=== PATIENT | female | born 1935 | race Caucasian/White ===

== ENCOUNTER 2018-11-20 11:25 | Inpatient (IN) | payer MEDICARE ==
[2018-11-20] VITALS (18 sets, daily range): BP systolic 76–140; BP diastolic 50–82
[~2018-11-20] VITALS: Ht 160 cm; Wt 96.6 kg
[~2018-11-20 11:25] MED LIST: PIPERACILLIN/TAZOBACTAM 2.25 GM in IV NORMAL SALINE 50ML 50 ML IV SCH
[2018-11-20] MEDS: levETIRAcetam 500 MG in IV DEXTROSE 5% 100ML 100 ML IV SCH (12:57)
[2018-11-20 13:13] LABS: BASE EXCESS ABG -2 mmol/L (-3-3); HCO3 ABG 25 mmol/L (21-28); PCO2 ABG 51 mmHg (35-46); PO2 ABG 265 mmHg (65-108)
[2018-11-20 13:19] LABS: FIO2 ABG 100
--- NOTE | 2018-11-20 13:34 | RAD ---
Abdominal radiograph November 20, 2018 INDICATION: ET tube placement. OG placement COMPARISON: None available TECHNIQUE: Single supine view of abdomen is provided. FINDINGS: Orogastric tube is identified with the side port projecting over the left upper quadrant the region of the stomach. There are no dilated small or large bowel loops. No pneumatosis coli. No portal venous gas is identified. Stool is noted within the left colon. No suspicious osseous amount. IMPRESSION: Orogastric tube is in appropriate position with the distal tip terminating in the stomach. Nonobstructive bowel gas pattern. Electronically signed by: Therese Walker MD (11/20/2018 1:31 PM) [id number]
--- NOTE | 2018-11-20 13:36 | RAD ---
EXAM: Chest, single view. HISTORY: Endotracheal tube placement. COMPARISON: None. FINDINGS: A frontal view of the chest is obtained. There is an endotracheal tube within the distal trachea with the tip approximately 2.0 cm proximal to the celina. There is a nasogastric tube looped within the stomach. There is diffuse right lung infiltrate. There is a suspected left lower lobe atelectasis superimposed on chronic coarse increased interstitial opacity. The heart is normal in size. There is no pleural effusion or pneumothorax. IMPRESSION: 1. Endotracheal tube within the distal trachea and nasogastric tube within the stomach. 2. Diffuse right lung infiltrate. Electronically signed by: Poornima Washington MD (11/20/2018 1:32 PM) [facility]
--- NOTE | 2018-11-20 14:33 | RAD ---
EXAM: Chest, single view. HISTORY: Line placement. COMPARISON: Chest radiograph obtained on the same date. FINDINGS: A frontal view of the chest is obtained. There is a right internal jugular catheter with the tip in the superior right atrium. There is no pneumothorax. There is noted to the tube within the distal trachea with the tip approximately 1.9 cm from the celina. There is a nasogastric tube within the stomach. There is diffuse upper lobe predominant right lung infiltrate. There is suspected left lower lobe atelectasis. There is a stable prominent cardiac silhouette. IMPRESSION: 1. Is interval placement of a right internal jugular catheter with the tip in the superior right atrium. There is an endotracheal tube and nasogastric tube which are unchanged compared to the prior study. 2. Diffuse upper lobe predominant right lung infiltrate superimposed on diffuse interstitial prominence. 3. Prominent cardiac silhouette. Electronically signed by: Poornima Washington MD (11/20/2018 2:31 PM) [facility]
[2018-11-20] MEDS ORDERED: levETIRAcetam 1,000 MG in IV DEXTROSE 5% 100ML 100 ML IV ONE (15:30)
--- NOTE | 2018-11-20 15:41 | RAD ---
Procedure: Ultrasound-guided placement of right internal jugular central venous catheter11/20/2018 3:38 PM Clinical Indication: EMERGENT ACCESS, need for fluid resuscitation Discussion: The risks and benefits of the procedure were discussed the patient and/or their technical service representative. Informed consent was obtained. A timeout procedure was performed. All elements of maximal sterile barrier technique including the use of a cap, mask, sterile gown, sterile gloves, large sterile sheet, appropriate hand hygiene, and 2% chlorhexidine for cutaneous antisepsis (or acceptable alternative antiseptic per current guidelines) were followed for this procedure. The patient was prepped and draped in the usual sterile fashion. Ultrasound interrogation of the right neck revealed patency and compressibility of the right internal jugular vein. A 21-gauge micropuncture was then used to gain access to this vein under ultrasound guidance. A hard copy ultrasound image was recorded. A guidewire was advanced centrally. 5 Chinese sheath was placed. Over a wire following dilatation, a triple-lumen central venous catheter was advanced centrally. Catheter was found to flush and aspirate normally. Follow-up chest radiograph demonstrates tip at the cavoatrial junction. Catheter secured in place and a sterile dressing was applied. No immediate complications were identified. Impression: Successful ultrasound-guided placement of right internal jugular triple-lumen central venous catheter
--- NOTE | 2018-11-20 15:56 | PDOC2 ---
ROSELINE TRUJILLO THREADER OPERATOR 11/20/18 1556: CARDIAC CONSULT DATE OF CONSULT Date of Consult DATE: 11/20/18 TIME: 15:12 REASON FOR CONSULT Reason for Consult: Cardiopulmonary arrest REFERRING PHYSICIAN Referring Physician: Heath SOURCE Source: Chart review HISTORY OF PRESENT ILLNESS HISTORY OF PRESENT ILLNESS This is an 83 yo female admitted for cardiopulmonary arrest. Pt noted recently with EF of 15% over a month ago. She has known cardiac disease but noted related to CAD. She had LHC in 2002 which did not show any significnat blockage per daughter but she did have rheumatic heart disase as a child. She was eating biscuits and gravy and actually got done. She was sitting on a recliner and sat back a little bit further which afterwards she was noted by her daughter described as cough and agonal breathing and started shaking her arms. She was with 911 on the phone and was still doing her described agonal breathing. EMS station was close by per family and no CPR started till EMS got there which was about between 5-10 minutes from the start of symptoms. No notable CP, vomiting or incontinence at that time recorded. She was noted with V-fib and was shocked at least once per staff. She was intubated en route and while in ED at [place] apparently had Vtach at [place] then went back to . Again she was on hospice but daughter decided to revoke it and further resuscitation was initiated at [facility] and pt eventually transferred to [facility] for further evaluation and treatment and hypothermia protocol has been initiated,. PAST MEDICAL HISTORY Cardiovascular: CHF, HTN, Other (NICM) CENTRAL NERVOUS SYSTEM: Other (RLS) Musculoskeletal: Osteoarthritis PAST SURGICAL HISTORY Past Surgical History: Other (mastoid surgery) FAMILY HISTORY Family History noncontributory SOCIAL HISTORY Smoke: No ALCOHOL: none Drugs: None Lives: with Family ALLERGIES ALLERGIES: Coded Allergies: Sulfa (Sulfonamide Antibiotics) (Verified Allergy, Severe, anaphylaxis, ) clarithromycin (Verified Allergy, Severe, anaphylaxis, 11/20/18) codeine (Verified Allergy, Intermediate, 11/20/18) ROS Review of System unreliable, intubated PHYSICAL EXAM General: Other (intubated) Lungs: Other (diffuse rhonchus) Heart: Regular rate (appears to be SR with LBBB), Other (unable to appreciate heart sounds due to rhonchus) Abdomen: Soft Extremities: No cyanosis, Other (1+ bilateral LE pitting edema) Skin: No breakdown Psych/Mental Status: Other (on versed) MUSCULOSKELETAL: Osteoarthritic changes both hands VITALS VITALS Vital Signs Date Time Temp Pulse Resp B/P (MAP) Pulse Ox O2 Delivery O2 Flow Rate FiO2 11/20/18 13:00 100 Ventilator LABS Lab: Laboratory Tests Test 11/20/18 13:05 11/20/18 13:30 Arterial Blood pH 7.31 (7.35-7.45) Arterial Blood pCO2 at Patient Temp 51 mmHg (35-46) Arterial Blood pO2 at Patient Temp 265 mmHg (65-108) Arterial Blood HCO3 25 mmol/L (21-28) Arterial Blood Base Excess -2 mmol/L (-3-3) FiO2 100 Glucose (Fingerstick) 321 mg/dL (70-99) ASSESSMENT/PLAN ASSESSMENT/PLAN 1. OOH Cardiopulmonary arrest with Vfib/VT: x2 shocks presently SR with LBBB. 5- 10 minutes without CPR with described agonal breathing. suspect triggered potentially by aspiration. 2. Acute on chronic systolic CHF 3. Acute respiratory failure: intubated/vent 4. Anoxic encephalopathy with seizure episode. 5. Possible aspiration 6,.Prior hospice: decided 1 month ago and revoked by daughter at home. 7. HTN: hypotensive 8. DM2/HLP 9. NICM: known EF<15% with hx of rheumatic heart disease. Recommendations 1. Family deciding to change to DNR status 2. Supportive care, currently on hypothermia protocol 3. Consult neurology 4. TTE. CMP, Mg. PT/INR Will need CT head. 5. Very poor prognosis, consider transforming back to hospice. 6. Versed and levophed in place. KRUNAL DELGADILLO MD 11/21/18 0649: CARDIAC CONSULT ASSESSMENT/PLAN ASSESSMENT/PLAN Pt. seen and examined. Agree with above GENERAL ADJUSTER note. Discussed with family the current issues of possible neurologic injury and severe known prior LV dysfunction. Agree with DNR. Await neurologic recovery, check echo to help inform family the prognosis of her CMP. Supportive care. Late entry for 11/20/2018 ROSELINE TRUJILLO APRN Nov 20, 2018 15:56 KRUNAL DELGADILLO MD Nov 21, 2018 06:49
--- NOTE | 2018-11-20 16:10 | PDOC2 ---
PALLIATIVE CARE Palliative Care Note Palliative Care Consult requested by Dr. Joe to address goals of care. S/P Cardiopulmonary Arrest at home. Transferred from [facility] Medical Assessment per medical record; 1. OOH Cardiopulmonary arrest with Vfib/VT: x2 shocks presently SR with LBBB. 5- 10 minutes without CPR with described agonal breathing. suspect triggered potentially by aspiration. 2. Acute on chronic systolic CHF 3. Acute respiratory failure: intubated/vent 4. Anoxic encephalopathy with seizure episode. 5. Possible aspiration 6,.Prior hospice: decided 1 month ago and revoked by daughter at home. 7. HTN: hypotensive 8. DM2/HLP 9. NICM: known EF<15% with hx of rheumatic heart disease. Daughter shared that patient had been placed on Hospice ([facility]) for Heart Failure. (Has signed out) Dr. Alexandre here. Spoke with daughter. Reviewed medical condition with [facility]-- dtr/DPOA and her . Patient has son Asa coming from [place]. Daughter requests DNR. Hypothermia protocol Patient on Vent. Seizure activity --intermittent. On Versed gtt. Received Ativan. Dr. Ha examined pt. 1605 CT scan ordered and transferred to Radiology. Plan: Continue current plan DNR. On vent. [address] Head IMPRESSION: 1. No acute intracranial abnormality. 2. Mild supratentorial white matter changes probably due to chronic small vessel ischemic disease. 1650 Family at bedside. Continue current plan. DENNIS ROWAN Nov 20, 2018 16:10
--- NOTE | 2018-11-20 16:17 | PDOC ---
PULMONARY PROGRESS NOTES Vitals Vital Signs Date Time Temp Pulse Resp B/P (MAP) Pulse Ox O2 Delivery O2 Flow Rate FiO2 11/20/18 13:00 100 Ventilator Labs Laboratory Tests Test 11/20/18 13:05 11/20/18 13:30 Arterial Blood pH 7.31 (7.35-7.45) Arterial Blood pCO2 at Patient Temp 51 mmHg (35-46) Arterial Blood pO2 at Patient Temp 265 mmHg (65-108) Arterial Blood HCO3 25 mmol/L (21-28) Arterial Blood Base Excess -2 mmol/L (-3-3) FiO2 100 Glucose (Fingerstick) 321 mg/dL (70-99) Laboratory Tests Test 11/20/18 13:05 11/20/18 13:30 Arterial Blood pH 7.31 (7.35-7.45) Arterial Blood pCO2 at Patient Temp 51 mmHg (35-46) Arterial Blood pO2 at Patient Temp 265 mmHg (65-108) Arterial Blood HCO3 25 mmol/L (21-28) Arterial Blood Base Excess -2 mmol/L (-3-3) FiO2 100 Glucose (Fingerstick) 321 mg/dL (70-99) Impression . FULL NOTE DICTATED OOH CARDIAC ARREST AGREE WITH CURRENT RX D/C MALA BECK MD Nov 20, 2018 16:17
--- NOTE | 2018-11-20 16:33 | RAD ---
PQRS Compliance Statement: One or more of the following individualized dose reduction techniques were utilized for this examination: 1. Automated exposure control 2. Adjustment of the mA and/or kV according to patient size 3. Use of iterative reconstruction technique CT HEAD WITHOUT CONTRAST History: POST CODE, AMS, Comparison: None. Technique: Axial images are obtained of the head from the skull base through the vertex without IV contrast. Findings: No mass-effect, midline shift, extra-axial fluid collection, hemorrhage, or obvious acute infarction is identified. Basilar cisterns are patent. The ventricles and sulci are normal for patient age. There is mild supratentorial white matter hypoattenuation. This is a nonspecific finding but is commonly due to chronic small vessel ischemic disease. Bone windows demonstrate no acute calvarial abnormality. There is low-density with flecks of air in the posterior nasal passage. Patient is intubated. Mucosal thickening bilateral ethmoid and sphenoid sinuses. Evidence of prior left temporal bone surgery. Small amount of fluid in the left mastoid air cells. IMPRESSION: 1. No acute intracranial abnormality. 2. Mild supratentorial white matter changes probably due to chronic small vessel ischemic disease. Electronically signed by: Blair Cook MD (11/20/2018 4:30 PM) [id number]
[2018-11-20 16:59] LABS: HEMATOCRIT 35.3 % (36.0-47.0); HEMOGLOBIN 10.9 g/dL (12.0-15.5); RED BLOOD COUNT 4.2 x10^6/uL (3.50-5.40); RED CELL DISTRIBUTION WIDTH 14.5 % (11.5-14.5)
--- NOTE | 2018-11-20 17:00 | PDOC2 ---
NEUROLOGY CONSULT Date of Admission Date of Admission DATE: 11/20/18 TIME: 16:37 Reason for Consult Reason for Consult: IMPRESSION: Anoxia/hypoxia brain injury. Metabolic encephalopathy. Cardiopulmonary arrest, downtime estimated at least 5-10 minutes. Respiratory failure. VF and V-tach. Seizure. Metabolic acidosis. Diffuse right lung infiltrate. Hyperglycemia, glucose 321. CAD. CHF, EF 15% a month ago. HTN. Obesity. Other medical diseases. RECOMMENDATIONS/PLAN: Life support in ICU at the present time. Keppra 500 mg IV q12h. Stat HCT w/o contrast before hypothermia protocol. Lab: see orders. Consulted Cardiology. Treat medical and cardiac diseases. Further neurological evaluation after cardiac protocol. Consulted Palliative Care team. HISTORY OF THE PRESENT ILLNESS: This is an 83-year-old female patient who was admitted after cardiopulmonary arrest. She has CAD and her recently EF was 15% over a month ago. She had rheumatic heart disease in childhood. She was sitting on a recliner after eating biscuits and gravy and sat back a little bit further which afterwards she was noted by her daughter described as cough and agonal breathing and started shaking her arms, so 911 was called. EMS station is near her family and no CPR started till EMS got there which was about 5-10 minutes from symptoms had started. No notable CP, vomiting or incontinence at that time. She was revealed V-fib and was shocked at least once per staff. She was intubated en route while in ED at [place] apparently had V-tach then went back to . She was on hospice but daughter decided to revoke it and further resuscitation was received and she was eventually transferred to [facility] for further evaluation and treatment. PAST MEDICAL HISTORY Cardiovascular: CHF, HTN, Other (NICM) CENTRAL NERVOUS SYSTEM: Other (RLS) Musculoskeletal: Osteoarthritis PAST SURGICAL HISTORY Mastoid surgery. FAMILY HISTORY Noncontributory SOCIAL HISTORY Smoke: No ALCOHOL: none Drugs: None Lives: with Family ALLERGY: Unknown MEDICATIONS: Refer to MAR REVIEW OF SYSTEMS: Constitutional: Obesity. Head: No recent traumatic brain or head injury. Skin: No edema, or rash. Ear: No infection. Eyes: No vision loss or color blindness. Nose: No bleeding or purulent discharges. Hearing: Hearing decrease. Neck: No injury. Breast: No history of cancer, masses,or discharges. Cardiac: CAD, CHF. Pulmonary: Pneumonia. GI: No GI ulcer. Urinary/genital: UTI. Endocrinologic: Diabetes Mellitus, obesity. Skeletomuscular: No muscular atrophy, deformity. Neurological: see HP. Psychiatric: Denies drug use/abuse. Otherwise, not [id number] review of systems. PHYSICAL EXAMINATION: General appearance is in acute distress. HEENT: Normocephalic and nontraumatic. Eyes, nose, ears, and throat are unremarkable. Neck is supple. No lymphadenopathy. No crepitus. Cardiovascular: S1, S2. Pulmonary: On vent. Abdomen: Bowel sounds are positive. Extremities: No rash. No restriction of range of motion NEUROLOGICAL EXAMINATION: Unresponsiveness. Not oriented to time, place and person. Pupils about 2 mm, not sensitive to light stimuli. EOMI not elicited. CN: no acute focal findings. Muscle tone: decreased. Muscle strength: No movements noted to stimuli. DTR: 0-1 Plantar reflex: No response bilaterally Gait: Unable to walk. Sensory exam: no response to pain stimuli. Not able to access cerebellar signs. F-T-N test not performed in unresponsive state. Current Medications Current Medications Current Medications Midazolam HCl 100 ml @ 5 mls/hr CONT PRN IV SEE I/O RECORD; Start 11/20/18 at 13:00 Lorazepam (Ativan) 2 mg STK-MED ONCE .ROUTE ; Start 11/20/18 at 12:56; Stop at 12:57; Status DC Norepinephrine Bitartrate 250 ml @ 1.875 mls/ hr CONT PRN IV SEE I/O RECORD; Start 11/20/18 at 13:15 Levetiracetam 1000 mg/Dextrose 110 ml @ 440 mls/hr 1X ONCE IV ; Start at 15:30; Stop 11/20/18 at 15:44; Status DC Levetiracetam 500 mg/Dextrose 105 ml @ 420 mls/hr Q12HR IV ; Start 11/21/18 at 09:00 Allergies Allergies: Allergies Coded Allergies Type Severity Reaction Last Updated Verified Unable to Assess 11/20/18 No ROS Review of System The patient denies any associated fevers, chills, headache, ear pain, rhinorrhea , sore throat, stiff neck, productive cough, chest pain, shortness of breath, back or flank pain, abdominal pain, nausea, vomiting, diarrhea, constipation, dysuria, rash, numbness, weakness, tingling, incontinence, difficulty ambulating, or diaphoresis. Physical Exam Physical Exam General: Well developed, well nourished, no acute distress, well appearing HEENT: Pupils equally round and reactive to light, EOMI, no discharge, normal conjunctiva Neck: Supple, no nuchal rigidity, no JVD, trachea midline, no tenderness Cardiac: RRR, no murmurs, no gallops, no rubs Chest/Lungs: CTAB, no wheeze, no rhonchi, no crackles Abdomen: soft, non-distended, no guarding, no peritoneal signs, non-tender Back: No tenderness Extremities: no edema, pulses intact, non-tender,capillary refill <3 sec bilateral upper and lower extremities, Neuro: Alert and oriented x 4, no focal deficits, normal speech Vitals Vitals: Vital Signs Date Time Temp Pulse Resp B/P (MAP) Pulse Ox O2 Delivery O2 Flow Rate FiO2 11/20/18 13:00 100 Ventilator Labs Labs Laboratory Tests Test 11/20/18 13:05 11/20/18 13:30 Arterial Blood pH 7.31 (7.35-7.45) Arterial Blood pCO2 at Patient Temp 51 mmHg (35-46) Arterial Blood pO2 at Patient Temp 265 mmHg (65-108) Arterial Blood HCO3 25 mmol/L (21-28) Arterial Blood Base Excess -2 mmol/L (-3-3) FiO2 100 Glucose (Fingerstick) 321 mg/dL (70-99) Laboratory Tests Test 11/20/18 13:05 11/20/18 13:30 Arterial Blood pH 7.31 (7.35-7.45) Arterial Blood pCO2 at Patient Temp 51 mmHg (35-46) Arterial Blood pO2 at Patient Temp 265 mmHg (65-108) Arterial Blood HCO3 25 mmol/L (21-28) Arterial Blood Base Excess -2 mmol/L (-3-3) FiO2 100 Glucose (Fingerstick) 321 mg/dL (70-99) KAI MENDEZ MD Nov 20, 2018 17:00
[2018-11-20 17:05] LABS: WHITE BLOOD COUNT 42.5 x10^3/uL (4.0-11.0)
[2018-11-20 17:11] LABS: PROTHROMBIN TIME PATIENT 15.4 SEC (11.7-14.0)
[2018-11-20 17:15] LABS: ALBUMIN 2.7 g/dL (3.4-5.0); ALBUMIN/GLOBULIN RATIO 0.8 (1.0-1.7); CALCIUM 8.2 mg/dL (8.5-10.1); CREATININE 1.7 mg/dL (0.6-1.0); GFR 28.6; MAGNESIUM 1.9 mg/dL (1.8-2.4); POTASSIUM 4.8 mmol/L (3.5-5.1); TOTAL BILIRUBIN 0.3 mg/dL (0.2-1.0); TOTAL PROTEIN 6.2 g/dL (6.4-8.2)
[2018-11-20] MEDS: MIDAZOLAM 100mg/100ml NS BAG 100 ML IV PRN ×2 (17:15→22:22)
[2018-11-20] MEDS: NOREPINEPHRIN 8MG/250ML PREMIX 250 ML IV PRN (17:15)
[2018-11-20] MEDS ORDERED: GLIM4TAB2 PO (19:19)
[2018-11-20] MEDS ORDERED: ZOLP10TA PO (19:19)
[2018-11-20] MEDS ORDERED: IPRA3AMP29 NEB (19:19)
[2018-11-20] MEDS ORDERED: BREO ELLIPTA 11 EACH IH (19:19)
[2018-11-20] MEDS ORDERED: ACET325T9 PO (19:19)
[2018-11-20] MEDS ORDERED: RAMI10CA53 PO (19:19)
[2018-11-20] MEDS ORDERED: CHOL100013 PO (19:19)
[2018-11-20] MEDS ORDERED: FURO-68 PO (19:19)
[2018-11-20] MEDS ORDERED: GLIM2TAB2 PO (19:19)
[2018-11-20] MEDS ORDERED: METO50TA6 PO (19:19)
[2018-11-20] MEDS ORDERED: TIOT18CA IH (19:19)
[2018-11-20] MEDS ORDERED: ASPI81TA50 PO (19:19)
[2018-11-20] MEDS ORDERED: INSU100I13 SQ (19:19)
[2018-11-20] MEDS ORDERED: IV NORMAL SALINE 500ML BAG 500 ML IV ONE (19:45)
[2018-11-20] MEDS ORDERED: PIP/TAZO PER PHARMACY MC PRN (19:45)
[2018-11-20] MEDS: IV NORMAL SALINE 1000ML BAG 1,000 ML IV SCH (19:48)
[2018-11-20 20:23] LABS: BASE EXCESS ABG -5 mmol/L (-3-3); CORRECTED PCO2 ABG 35 mmHg; CORRECTED PH ABG 7.36; CORRECTED PO2 ABG 77 mmHg; HCO3 ABG 20 mmol/L (21-28)
[2018-11-20 20:25] LABS: FIO2 ABG 60; PCO2 ABG 39 mmHg (35-46); PO2 ABG 88 mmHg (65-108)
[2018-11-20] MEDS: PIPERACILLIN/TAZOBACTAM 2.25 GM in IV NORMAL SALINE 50ML 50 ML IV SCH ×2 (20:39→23:50)
[2018-11-20 20:45] LABS: BASO % 0 % (0-3); EOS % 0 % (0-3); HEMATOCRIT 33.8 % (36.0-47.0); HEMOGLOBIN 10.5 g/dL (12.0-15.5); LYMPH # 1.7 x10^3/uL (1.0-4.8); LYMPH % 4 % (24-48); MEAN CORPUSCULAR HEMOGLOBIN 26 pg (25-35); MEAN CORPUSCULAR HGB CONC 31 g/dL (31-37); MEAN CORPUSCULAR VOLUME 85 fL (79-100); MONO # 2.4 x10^3/uL (0.0-1.1); MONO % 6 % (0-9); NEUT # 36.1 x10^3uL (1.8-7.7); NEUT % 90 % (31-73); PLATELET COUNT 301 x10^3/uL (140-400); RED BLOOD COUNT 3.99 x10^6/uL (3.50-5.40); RED CELL DISTRIBUTION WIDTH 14.5 % (11.5-14.5)
[2018-11-20] MEDS ORDERED: INSULIN REGULAR VIAL 150 UNIT in 0.9 % SODIUM CHLORIDE 150ML 150 ML IV PRN (20:45)
[2018-11-20 20:54] LABS: WHITE BLOOD COUNT 40.1 x10^3/uL (4.0-11.0)
[2018-11-20 20:58] LABS: PROTHROMBIN TIME PATIENT 16.1 SEC (11.7-14.0)
[2018-11-20] MEDS ORDERED: VANCOMYCIN 2 GM in IV NORMAL SALINE 500ML BAG 500 ML IV ONE (21:00)
[2018-11-20 21:02] LABS: ALBUMIN 2.4 g/dL (3.4-5.0); ALBUMIN/GLOBULIN RATIO 0.7 (1.0-1.7); CALCIUM 7.7 mg/dL (8.5-10.1); CREATININE 1.6 mg/dL (0.6-1.0); GFR 30.6; MAGNESIUM 1.7 mg/dL (1.8-2.4); PHOSPHORUS 4.1 mg/dL (2.6-4.7); POTASSIUM 4.8 mmol/L (3.5-5.1); TOTAL BILIRUBIN 0.3 mg/dL (0.2-1.0); TOTAL PROTEIN 5.9 g/dL (6.4-8.2)
[2018-11-20] MEDS: VANCOMYCIN PER PHARMACY MC PRN ×2 (21:35→21:36)
--- NOTE | 2018-11-20 21:41 | NUR ---
Pharmacy Vancomycin Dosing Note S:Consulted to monitor and dose vancomycin started 11/20/18. O:THAD CHENG is a 83 year old F with Empiric . Height: 5 feet, 3 inches Weight: 96.547178 kg [place] Body Weight: 52.40 Adjusted Body Weight: 70.08 Dosing Weight: Actual Other Antibiotics: Zosyn LABS: Last BUN: 34 Last Creatinine: 1.6 Creatinine Clearance: 28.4 mL/min Last WBC: 40.1 Last Procalcitonin: Tmax (past 24 hours): 99.1 Microbiology: I/O: Drug Levels: Last level: on at Last dose given 11/20/18 at 2040 Vancomycin Dosing: Loading Dose: 2000 mg x1 Dosing Weight: Actual Target Trough: 15-20 A: Based on weight and CrCl: P: 1. Vancomycin 2000mg, followed Vancomycin 1250 mg IV q24h. 2. Follow up Trough level on 11/22/18 at 2030. 3. Pharmacy will continue to monitor, follow and adjust therapy as needed. Russell Jamison [facility], 11/20/18 [id number]
[2018-11-20 21:50] LABS: % BANDS 27 % (0-9); % EOS 1 % (0-5); % LYMPHS 5 % (24-48); % MONOS 6 % (0-10); % SEGS 61 % (35-66)
[2018-11-20 21:51] LABS: PLT ESTIMATE ADEQUATE (ADEQUATE)
[2018-11-21] VITALS (29 sets, daily range): BP systolic 42–123; BP diastolic 41–81
[2018-11-21 02:13] LABS: CALCIUM 7.7 mg/dL (8.5-10.1); CREATININE 1.9 mg/dL (0.6-1.0); GFR 25.1; MAGNESIUM 1.5 mg/dL (1.8-2.4); PHOSPHORUS 3.2 mg/dL (2.6-4.7); POTASSIUM 3.6 mmol/L (3.5-5.1)
[2018-11-21] MEDS: NOREPINEPHRIN 8MG/250ML PREMIX 250 ML IV PRN ×2 (03:07→18:19)
--- NOTE | 2018-11-21 04:40 | CONS ---
DATE OF CONSULTATION: 11/20/2018 ATTENDING PHYSICIAN: Dr. Joe. REASON FOR CONSULTATION: The patient seen in pulmonary consultation at the request of Dr. Joe for vent management. The patient suffered an out of hospital cardiac arrest. HISTORY OF PRESENT ILLNESS: The patient is an 83-year-old with an out of hospital cardiac arrest. She was intubated and transferred to [facility]. She has an ejection fraction of 15%. Apparently, she was on hospice care. The daughter noted that she passed out at home. 911 was summoned. She had some agonal breathing. The patient was also noted to be in V-fib. She was shocked, minimum of once, maybe more than once. She was intubated en route and transferred to the Emergency Department at [facility]. She was eventually transferred to [place]. Upon arrival, I was in the intensive care unit. The patient had ET tube in place. She was actively seizing. Her vital signs are otherwise stable. The patient's daughter who was at the bedside stated that she has been sick for several weeks now. She had influenza virus and she was treated with Tamiflu. Then, she received several rounds of antibiotics and prednisone. She recently [place] here [place] of [place] to be closer to family for support. She was under hospice care for her cardiomyopathy. PAST MEDICAL HISTORY: Suspect nonischemic cardiomyopathy, ejection fraction of 15%, hypertension, chronic heart failure, recent influenza, recent treatment for pneumonia, possible COPD. She does have osteoarthritis. SOCIAL HISTORY: She lives with family. No history given of alcohol or tobacco use. ALLERGIES: SHE HAS MULTIPLE ALLERGIES, ACCORDING TO THE DAUGHTER. PHYSICAL EXAMINATION: GENERAL: She was in the intensive care unit. VITAL SIGNS: Stable. O2 saturation was greater than 92%. HEENT: Eyes, the sclerae were nonicteric. NECK: Jugular venous distention could not be assessed secondary to body habitus. CHEST: Full expansion. LUNGS: Adequate air flow, no wheezes. CARDIOVASCULAR: Regular rate and rhythm with S1, S2, no S3. ABDOMEN: Soft. EXTREMITIES: No edema. NEUROLOGIC: The patient was sedated, but was seizing. LABORATORY DATA: Chest x-ray revealed bilateral pulmonary infiltrates. Arterial blood gas was pending at the time. Electrolytes likewise pending. IMPRESSION: 1. Acute respiratory failure secondary to out of hospital cardiopulmonary arrest. 2. Cardiac arrest, VFib. The patient shocked on the field. 3. History of nonischemic cardiomyopathy, ejection fraction of 15%. 4. Chronic heart failure. 5. Acute on chronic systolic heart failure. 6. 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 7. History of hypertension. 8. Type 2 diabetes. PLAN: 1. We will continue current support. 2. I spoke with Cardiology service. They will follow up. Suspect underlying insult was arrhythmia causing cardiac and subsequent pulmonary arrest. 3. We will initiate hypothermic protocol. 4. Ativan for seizures. 5. If continues to seize, we will consult Neurology. I do appreciate the privilege in sharing in the patient's care. Total cumulative critical care time of 50 minutes. MALA DIAMOND MD DR: SANA/sagar JOB#: [id number] / [id number]
[2018-11-21] MEDS: PIPERACILLIN/TAZOBACTAM 2.25 GM in IV NORMAL SALINE 50ML 50 ML IV SCH ×4 (05:54→23:42)
[2018-11-21 06:39] LABS: MAGNESIUM 1.7 mg/dL (1.8-2.4); PHOSPHORUS 2.9 mg/dL (2.6-4.7)
[2018-11-21 07:05] LABS: PROTHROMBIN TIME PATIENT 15.3 SEC (11.7-14.0)
[2018-11-21] MEDS: IV NORMAL SALINE 1000ML BAG 1,000 ML IV SCH ×2 (08:01→19:45)
--- NOTE | 2018-11-21 08:25 | RAD ---
Portable chest, 11/21/2018: HISTORY: Respiratory failure Comparison is made to yesterday's study. The ET tube tip lies several centimeters above the celina. An NG tube extends into the stomach. A right jugular central venous catheter extends into the right atrium. The heart is mildly enlarged. There are moderate patchy right lung infiltrates which appear unchanged. The underlying pulmonary vascularity on the right is obscured. There is ongoing obscuration of the left hemidiaphragm compatible with left basilar atelectasis/infiltrate. A component of pleural fluid cannot be excluded.. Similar findings were present on yesterday's study. There is no evidence of pneumothorax. IMPRESSION: 1. Stable tube positions. 2. Persistent moderate patchy right lung infiltrate suggesting pneumonia. 3. Unchanged mild left basilar atelectasis/infiltrate. Electronically signed by: Omar Francois MD (11/21/2018 8:22 AM) [facility]
[2018-11-21 08:30] LABS: CALCIUM 7.7 mg/dL (8.5-10.1); CREATININE 1.7 mg/dL (0.6-1.0); GFR 28.6; POTASSIUM 3.5 mmol/L (3.5-5.1)
[2018-11-21 08:32] LABS: HEMATOCRIT 33.9 % (36.0-47.0); HEMOGLOBIN 10.5 g/dL (12.0-15.5); RED CELL DISTRIBUTION WIDTH 14.6 % (11.5-14.5); WHITE BLOOD COUNT 37.9 x10^3/uL (4.0-11.0)
--- NOTE | 2018-11-21 09:18 | HP ---
ADMIT DATE: 11/20/2018 HISTORY OF PRESENT ILLNESS: The patient is an 83-year-old female patient who was apparently brought to the Emergency Room of [facility]. Apparently, she sustained cardiopulmonary arrest and was successfully resuscitated. She was intubated and was transferred to [facility] to continue mechanical ventilation, start hypothermic protocol and to consult the Cardiology as well as the aba tutor. PAST MEDICAL HISTORY: Significant for nonischemic cardiomyopathy with chronic systolic congestive heart failure, ejection fraction of only 15%. Has hypertension, restless leg syndrome, osteoarthritis. PAST SURGICAL HISTORY: Significant for mastoid surgery. FAMILY HISTORY: Noncontributory. SOCIAL HISTORY: She apparently lives with her family. She does not smoke, drink alcohol or use any recreational drugs. ALLERGIES: SHE IS ALLERGIC TO SULFA, ERYTHROMYCIN AND CODEINE. HOME MEDICATIONS: She was on following medications: Ipratropium bromide/albuterol sulfate for DuoNeb 0.5/2.5 mg 3 mL by nebulizer 4 times a day, Spiriva HandiHaler 1 inhalation once a day, metoprolol tartrate 50 mg twice a day, ramipril 10 mg once a day, aspirin 81 mg once a day, acetaminophen 325 mg 1-2 tablets 4 times a day, Ambien 10 mg at bedtime, furosemide 40 mg daily, Breo Ellipta 100/25 one puff daily. She is on Lantus insulin 45 units at bedtime and glimepiride 4 mg daily with breakfast, glimepiride 2 mg at supper. She is on vitamin D 1000 International Unit once a day. REVIEW OF SYSTEMS: Unobtainable. PHYSICAL EXAMINATION: GENERAL: On arrival to the ICU, she was intubated and mechanically ventilated. VITAL SIGNS: Her heart rate was 108, blood pressure was 105/63, temperature was 99.1, respiratory rate was 28 and oxygen saturation was 100%. HEAD, EYES, EARS, NOSE AND THROAT: Showed normocephalic, atraumatic. NECK: She has orotracheal and orogastric tube in place. Her neck was supple. HEART: Showed normal first and second heart sounds. No gallop, rub or murmur. CHEST: Showed central trachea, equal bilateral expansion, air entry. Vesicular breath sounds. No crepitation or rhonchi. ABDOMEN: Distended, soft, nontender. NEUROLOGIC: She was encephalopathic. LABORATORY DATA: Her lab work done at [facility] Emergency Room showed a white cell count 24,900, hemoglobin 11.7, hematocrit 37.6, MCV 85 and platelet count of 326,000, with normal manual differential. Her chemistry showed a serum sodium 140, potassium 4.4, chloride 100, bicarbonate 28, anion gap of 12, blood glucose of 329, BUN 23, creatinine 1.4. Her total bilirubin is normal. AST, ALT, alkaline phosphatase are elevated. Total protein 6.6, albumin 2.6, calcium was 8.8. Her globulin was 4. Her estimated GFR was 55 mL per minute. His CK was 178 and troponin was 0.182. Her magnesium was 2.1. Her EKG showed that she has a regular rhythm ____ ST axis deviation with nonspecific intraventricular block. She apparently has had a chest x-ray, which showed that there is a right internal jugular catheter with superior right atrium. There is an endotracheal tube and nasogastric tube, which are unchanged compared to prior study. Diffuse upper lobe with dominant right lung infiltrate superimposed on diffuse interstitial prominence, and she has prominent cardiac silhouette. ASSESSMENT AND PLAN: The patient received almost 3 liters of fluid and was started on Levophed, started on hypothermia protocol. By the time she arrived to the ICU, she also had what seemed to be partial seizures, for which we started her on loading dose of Keppra and continued on 500 mg IV twice a day, started her also on vasopressor in the form of Levophed. Given her white cell count was extremely high at 40,000 by the time she arrived here, we did start her also on IV antibiotic in the form of vancomycin and Zosyn as per pharmacy recommendation. I did consult the aba tutor, cardiology team. Given the fact that she has cardiac arrest, probably based on cardiac arrhythmia in a patient with a nonischemic cardiomyopathy with very poor ejection fraction of 15%. Given her seizures, I did consult also the neurologist, and I have also consulted the palliative care team given the fact that she was already on hospice prior to her cardiac arrest. We will follow her closely and await the outcome of the discussion between the palliative care team and the family. LEN SOTELO MD DR: TELMA/sagar JOB#: [id number] / [id number]
--- NOTE | 2018-11-21 09:19 | PDOC ---
PULMONARY PROGRESS NOTES Subjective PT ON PRESSORS AND SEDATED HYPOTHERMIC PROTOCOL IV KEPPRA Vitals Vital Signs Date Time Temp Pulse Resp B/P (MAP) Pulse Ox O2 Delivery O2 Flow Rate FiO2 11/21/18 06:30 87/69 (75) 11/21/18 06:00 91.7 42 28 99 Ventilator 91.7 Lungs: Clear Cardiovascular: S1, S2 Abdomen: Soft Extremities: Other (EDEMA) Skin: Warm Labs Laboratory Tests Test 11/20/18 13:05 11/20/18 13:30 11/20/18 16:50 11/20/18 20:03 Arterial Blood pH 7.31 (7.35-7.45) 7.33 (7.35-7.45) Arterial Blood pCO2 at Patient Temp 51 mmHg (35-46) 39 mmHg (35-46) Arterial Blood pO2 at Patient Temp 265 mmHg (65-108) 88 mmHg (65-108) Arterial Blood HCO3 25 mmol/L (21-28) 20 mmol/L (21-28) Arterial Blood Base Excess -2 mmol/L (-3-3) -5 mmol/L (-3-3) FiO2 100 60 Glucose (Fingerstick) 321 mg/dL (70-99) White Blood Count 42.5 x10^3/uL (4.0-11.0) Red Blood Count 4.20 x10^6/uL (3.50-5.40) Hemoglobin 10.9 g/dL (12.0-15.5) Hematocrit 35.3 % (36.0-47.0) Mean Corpuscular Volume 84 fL (79-100) Mean Corpuscular Hemoglobin 26 pg (25-35) Mean Corpuscular Hemoglobin Concent 31 g/dL (31-37) Red Cell Distribution Width 14.5 % (11.5-14.5) Platelet Count 362 x10^3/uL (140-400) Prothrombin Time 15.4 SEC (11.7-14.0) Prothromb Time International Ratio 1.3 (0.8-1.1) Sodium Level 138 mmol/L (136-145) Potassium Level 4.8 mmol/L (3.5-5.1) Chloride Level 97 mmol/L (98-107) Carbon Dioxide Level 29 mmol/L (21-32) Anion Gap 12 (6-14) Blood Urea Nitrogen 30 mg/dL (7-20) Creatinine 1.7 mg/dL (0.6-1.0) Estimated GFR (Cockcroft-Gault) 28.6 BUN/Creatinine Ratio 18 (6-20) Glucose Level 415 mg/dL (70-99) Calcium Level 8.2 mg/dL (8.5-10.1) Magnesium Level 1.9 mg/dL (1.8-2.4) Total Bilirubin 0.3 mg/dL (0.2-1.0) Aspartate Amino Transf (AST/SGOT) 229 U/L (15-37) Alanine Aminotransferase (ALT/SGPT) 243 U/L (14-59) Alkaline Phosphatase 94 U/L (46-116) Total Protein 6.2 g/dL (6.4-8.2) Albumin 2.7 g/dL (3.4-5.0) Albumin/Globulin Ratio 0.8 (1.0-1.7) Arterial Blood pH (Temp corrected) 7.36 Arterial Blood pCO2 (Temp correct) 35 mmHg Arterial Blood pO2 (Temp corrected) 77 mmHg Test 11/20/18 20:36 11/20/18 20:37 11/20/18 22:20 11/20/18 23:20 Glucose (Fingerstick) 436 mg/dL (70-99) 376 mg/dL (70-99) 394 mg/dL (70-99) White Blood Count 40.1 x10^3/uL (4.0-11.0) Red Blood Count 3.99 x10^6/uL (3.50-5.40) Hemoglobin 10.5 g/dL (12.0-15.5) Hematocrit 33.8 % (36.0-47.0) Mean Corpuscular Volume 85 fL (79-100) Mean Corpuscular Hemoglobin 26 pg (25-35) Mean Corpuscular Hemoglobin Concent 31 g/dL (31-37) Red Cell Distribution Width 14.5 % (11.5-14.5) Platelet Count 301 x10^3/uL (140-400) Neutrophils (%) (Auto) 90 % (31-73) Lymphocytes (%) (Auto) 4 % (24-48) Monocytes (%) (Auto) 6 % (0-9) Eosinophils (%) (Auto) 0 % (0-3) Basophils (%) (Auto) 0 % (0-3) Neutrophils # (Auto) 36.1 x10^3uL (1.8-7.7) Lymphocytes # (Auto) 1.7 x10^3/uL (1.0-4.8) Monocytes # (Auto) 2.4 x10^3/uL (0.0-1.1) Eosinophils # (Auto) 0.0 x10^3/uL (0.0-0.7) Basophils # (Auto) 0.0 x10^3/uL (0.0-0.2) Segmented Neutrophils % 61 % (35-66) Band Neutrophils % 27 % (0-9) Lymphocytes % 5 % (24-48) Monocytes % 6 % (0-10) Eosinophils % 1 % (0-5) Platelet Estimate Adequate (ADEQUATE) Prothrombin Time 16.1 SEC (11.7-14.0) Prothromb Time International Ratio 1.3 (0.8-1.1) Sodium Level 139 mmol/L (136-145) Potassium Level 4.8 mmol/L (3.5-5.1) Chloride Level 100 mmol/L (98-107) Carbon Dioxide Level 23 mmol/L (21-32) Anion Gap 16 (6-14) Blood Urea Nitrogen 34 mg/dL (7-20) Creatinine 1.6 mg/dL (0.6-1.0) Estimated GFR (Cockcroft-Gault) 30.6 BUN/Creatinine Ratio 21 (6-20) Glucose Level 456 mg/dL (70-99) Calcium Level 7.7 mg/dL (8.5-10.1) Phosphorus Level 4.1 mg/dL (2.6-4.7) Magnesium Level 1.7 mg/dL (1.8-2.4) Total Bilirubin 0.3 mg/dL (0.2-1.0) Aspartate Amino Transf (AST/SGOT) 172 U/L (15-37) Alanine Aminotransferase (ALT/SGPT) 211 U/L (14-59) Alkaline Phosphatase 87 U/L (46-116) Troponin I Quantitative 1.688 ng/mL (0.000-0.055) Total Protein 5.9 g/dL (6.4-8.2) Albumin 2.4 g/dL (3.4-5.0) Albumin/Globulin Ratio 0.7 (1.0-1.7) Test 11/21/18 00:34 11/21/18 01:30 11/21/18 01:39 11/21/18 03:05 Glucose (Fingerstick) 356 mg/dL (70-99) 308 mg/dL (70-99) 264 mg/dL (70-99) Sodium Level 141 mmol/L (136-145) Potassium Level 3.6 mmol/L (3.5-5.1) Chloride Level 102 mmol/L (98-107) Carbon Dioxide Level 26 mmol/L (21-32) Anion Gap 13 (6-14) Blood Urea Nitrogen 37 mg/dL (7-20) Creatinine 1.9 mg/dL (0.6-1.0) Estimated GFR (Cockcroft-Gault) 25.1 Glucose Level 362 mg/dL (70-99) Calcium Level 7.7 mg/dL (8.5-10.1) Phosphorus Level 3.2 mg/dL (2.6-4.7) Magnesium Level 1.5 mg/dL (1.8-2.4) Test 11/21/18 04:16 11/21/18 06:00 11/21/18 06:02 11/21/18 08:56 Glucose (Fingerstick) 192 mg/dL (70-99) 183 mg/dL (70-99) 128 mg/dL (70-99) White Blood Count 37.9 x10^3/uL (4.0-11.0) Red Blood Count 4.00 x10^6/uL (3.50-5.40) Hemoglobin 10.5 g/dL (12.0-15.5) Hematocrit 33.9 % (36.0-47.0) Mean Corpuscular Volume 85 fL (79-100) Mean Corpuscular Hemoglobin 26 pg (25-35) Mean Corpuscular Hemoglobin Concent 31 g/dL (31-37) Red Cell Distribution Width 14.6 % (11.5-14.5) Platelet Count 264 x10^3/uL (140-400) Prothrombin Time 15.3 SEC (11.7-14.0) Prothromb Time International Ratio 1.2 (0.8-1.1) Sodium Level 142 mmol/L (136-145) Potassium Level 3.5 mmol/L (3.5-5.1) Chloride Level 104 mmol/L (98-107) Carbon Dioxide Level 23 mmol/L (21-32) Anion Gap 15 (6-14) Blood Urea Nitrogen 39 mg/dL (7-20) Creatinine 1.7 mg/dL (0.6-1.0) Estimated GFR (Cockcroft-Gault) 28.6 Glucose Level 204 mg/dL (70-99) Calcium Level 7.7 mg/dL (8.5-10.1) Phosphorus Level 2.9 mg/dL (2.6-4.7) Magnesium Level 1.7 mg/dL (1.8-2.4) Laboratory Tests Test 11/20/18 13:05 11/20/18 13:30 11/20/18 16:50 11/20/18 20:03 Arterial Blood pH 7.31 (7.35-7.45) 7.33 (7.35-7.45) Arterial Blood pCO2 at Patient Temp 51 mmHg (35-46) 39 mmHg (35-46) Arterial Blood pO2 at Patient Temp 265 mmHg (65-108) 88 mmHg (65-108) Arterial Blood HCO3 25 mmol/L (21-28) 20 mmol/L (21-28) Arterial Blood Base Excess -2 mmol/L (-3-3) -5 mmol/L (-3-3) FiO2 100 60 Glucose (Fingerstick) 321 mg/dL (70-99) White Blood Count 42.5 x10^3/uL (4.0-11.0) Red Blood Count 4.20 x10^6/uL (3.50-5.40) Hemoglobin 10.9 g/dL (12.0-15.5) Hematocrit 35.3 % (36.0-47.0) Mean Corpuscular Volume 84 fL (79-100) Mean Corpuscular Hemoglobin 26 pg (25-35) Mean Corpuscular Hemoglobin Concent 31 g/dL (31-37) Red Cell Distribution Width 14.5 % (11.5-14.5) Platelet Count 362 x10^3/uL (140-400) Prothrombin Time 15.4 SEC (11.7-14.0) Prothromb Time International Ratio 1.3 (0.8-1.1) Sodium Level 138 mmol/L (136-145) Potassium Level 4.8 mmol/L (3.5-5.1) Chloride Level 97 mmol/L (98-107) Carbon Dioxide Level 29 mmol/L (21-32) Anion Gap 12 (6-14) Blood Urea Nitrogen 30 mg/dL (7-20) Creatinine 1.7 mg/dL (0.6-1.0) Estimated GFR (Cockcroft-Gault) 28.6 BUN/Creatinine Ratio 18 (6-20) Glucose Level 415 mg/dL (70-99) Calcium Level 8.2 mg/dL (8.5-10.1) Magnesium Level 1.9 mg/dL (1.8-2.4) Total Bilirubin 0.3 mg/dL (0.2-1.0) Aspartate Amino Transf (AST/SGOT) 229 U/L (15-37) Alanine Aminotransferase (ALT/SGPT) 243 U/L (14-59) Alkaline Phosphatase 94 U/L (46-116) Total Protein 6.2 g/dL (6.4-8.2) Albumin 2.7 g/dL (3.4-5.0) Albumin/Globulin Ratio 0.8 (1.0-1.7) Arterial Blood pH (Temp corrected) 7.36 Arterial Blood pCO2 (Temp correct) 35 mmHg Arterial Blood pO2 (Temp corrected) 77 mmHg Test 11/20/18 20:36 11/20/18 20:37 11/20/18 22:20 11/20/18 23:20 Glucose (Fingerstick) 436 mg/dL (70-99) 376 mg/dL (70-99) 394 mg/dL (70-99) White Blood Count 40.1 x10^3/uL (4.0-11.0) Red Blood Count 3.99 x10^6/uL (3.50-5.40) Hemoglobin 10.5 g/dL (12.0-15.5) Hematocrit 33.8 % (36.0-47.0) Mean Corpuscular Volume 85 fL (79-100) Mean Corpuscular Hemoglobin 26 pg (25-35) Mean Corpuscular Hemoglobin Concent 31 g/dL (31-37) Red Cell Distribution Width 14.5 % (11.5-14.5) Platelet Count 301 x10^3/uL (140-400) Neutrophils (%) (Auto) 90 % (31-73) Lymphocytes (%) (Auto) 4 % (24-48) Monocytes (%) (Auto) 6 % (0-9) Eosinophils (%) (Auto) 0 % (0-3) Basophils (%) (Auto) 0 % (0-3) Neutrophils # (Auto) 36.1 x10^3uL (1.8-7.7) Lymphocytes # (Auto) 1.7 x10^3/uL (1.0-4.8) Monocytes # (Auto) 2.4 x10^3/uL (0.0-1.1) Eosinophils # (Auto) 0.0 x10^3/uL (0.0-0.7) Basophils # (Auto) 0.0 x10^3/uL (0.0-0.2) Segmented Neutrophils % 61 % (35-66) Band Neutrophils % 27 % (0-9) Lymphocytes % 5 % (24-48) Monocytes % 6 % (0-10) Eosinophils % 1 % (0-5) Platelet Estimate Adequate (ADEQUATE) Prothrombin Time 16.1 SEC (11.7-14.0) Prothromb Time International Ratio 1.3 (0.8-1.1) Sodium Level 139 mmol/L (136-145) Potassium Level 4.8 mmol/L (3.5-5.1) Chloride Level 100 mmol/L (98-107) Carbon Dioxide Level 23 mmol/L (21-32) Anion Gap 16 (6-14) Blood Urea Nitrogen 34 mg/dL (7-20) Creatinine 1.6 mg/dL (0.6-1.0) Estimated GFR (Cockcroft-Gault) 30.6 BUN/Creatinine Ratio 21 (6-20) Glucose Level 456 mg/dL (70-99) Calcium Level 7.7 mg/dL (8.5-10.1) Phosphorus Level 4.1 mg/dL (2.6-4.7) Magnesium Level 1.7 mg/dL (1.8-2.4) Total Bilirubin 0.3 mg/dL (0.2-1.0) Aspartate Amino Transf (AST/SGOT) 172 U/L (15-37) Alanine Aminotransferase (ALT/SGPT) 211 U/L (14-59) Alkaline Phosphatase 87 U/L (46-116) Troponin I Quantitative 1.688 ng/mL (0.000-0.055) Total Protein 5.9 g/dL (6.4-8.2) Albumin 2.4 g/dL (3.4-5.0) Albumin/Globulin Ratio 0.7 (1.0-1.7) Test 11/21/18 00:34 11/21/18 01:30 11/21/18 01:39 11/21/18 03:05 Glucose (Fingerstick) 356 mg/dL (70-99) 308 mg/dL (70-99) 264 mg/dL (70-99) Sodium Level 141 mmol/L (136-145) Potassium Level 3.6 mmol/L (3.5-5.1) Chloride Level 102 mmol/L (98-107) Carbon Dioxide Level 26 mmol/L (21-32) Anion Gap 13 (6-14) Blood Urea Nitrogen 37 mg/dL (7-20) Creatinine 1.9 mg/dL (0.6-1.0) Estimated GFR (Cockcroft-Gault) 25.1 Glucose Level 362 mg/dL (70-99) Calcium Level 7.7 mg/dL (8.5-10.1) Phosphorus Level 3.2 mg/dL (2.6-4.7) Magnesium Level 1.5 mg/dL (1.8-2.4) Test 11/21/18 04:16 11/21/18 06:00 11/21/18 06:02 11/21/18 08:56 Glucose (Fingerstick) 192 mg/dL (70-99) 183 mg/dL (70-99) 128 mg/dL (70-99) White Blood Count 37.9 x10^3/uL (4.0-11.0) Red Blood Count 4.00 x10^6/uL (3.50-5.40) Hemoglobin 10.5 g/dL (12.0-15.5) Hematocrit 33.9 % (36.0-47.0) Mean Corpuscular Volume 85 fL (79-100) Mean Corpuscular Hemoglobin 26 pg (25-35) Mean Corpuscular Hemoglobin Concent 31 g/dL (31-37) Red Cell Distribution Width 14.6 % (11.5-14.5) Platelet Count 264 x10^3/uL (140-400) Prothrombin Time 15.3 SEC (11.7-14.0) Prothromb Time International Ratio 1.2 (0.8-1.1) Sodium Level 142 mmol/L (136-145) Potassium Level 3.5 mmol/L (3.5-5.1) Chloride Level 104 mmol/L (98-107) Carbon Dioxide Level 23 mmol/L (21-32) Anion Gap 15 (6-14) Blood Urea Nitrogen 39 mg/dL (7-20) Creatinine 1.7 mg/dL (0.6-1.0) Estimated GFR (Cockcroft-Gault) 28.6 Glucose Level 204 mg/dL (70-99) Calcium Level 7.7 mg/dL (8.5-10.1) Phosphorus Level 2.9 mg/dL (2.6-4.7) Magnesium Level 1.7 mg/dL (1.8-2.4) Medications Active Scripts Medications Dose Route/Sig Max Daily Dose Days Date Category Lantus Solostar (Insulin Glargine,Hum.rec.anlog) 100 Unit/1 Ml Insuln.pen 45 Unit SQ QHS 11/20/18 Reported Spiriva (Tiotropium Sharon) 18 Mcg Cap.w.dev 1 Cap IH DAILY 11/20/18 Reported Ramipril 10 Mg Capsule 1 Cap PO DAILY 11/20/18 Reported Metoprolol Tartrate 50 Mg Tablet 1 Tab PO BID 11/20/18 Reported Lasix (Furosemide) 40 Mg Tablet 1 Tab PO DAILY 11/20/18 Reported Glimepiride 2 Mg Tablet 1 Tab PO DAILYWSUP 11/20/18 Reported Glimepiride 4 Mg Tablet 1 Tab PO DAILYWBKFT 11/20/18 Reported Duoneb 0.5-3(2.5) Mg/3 Ml (Albuterol/Ipratropium) 3 Ml Ampul.neb 3 Ml NEB QID 11/20/18 Reported Vitamin D (Cholecalciferol (Vitamin D3)) 1,000 Unit Capsule 1 Cap PO DAILY 11/20/18 Reported Breo Ellipta 100-25 Mcg Inh (Fluticasone/Vilanterol) 1 Each Aer.pow.ba 1 Puff IH DAILY 11/20/18 Reported Aspir-Low (Aspirin) 81 Mg Tablet.dr 1 Tab PO DAILY 11/20/18 Reported Ambien (Zolpidem Tartrate) 10 Mg Tablet 10 Mg PO PRN QHS PRN 11/20/18 Reported Tylenol (Acetaminophen) 325 Mg Tablet 1-2 Tab PO QID PRN 11/20/18 Reported Impression . IMPRESSION: 1. Acute respiratory failure secondary to out of hospital cardiopulmonary arrest. 2. Cardiac arrest, VFib. The patient shocked on the field. 3. History of nonischemic cardiomyopathy, ejection fraction of 15%. 4. Chronic heart failure. 5. Acute on chronic systolic heart failure. 6. 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 7. History of hypertension. 8. Type 2 diabetes. cxr IMPRESSION: 1. Stable tube positions. 2. Persistent moderate patchy right lung infiltrate suggesting pneumonia. 3. Unchanged mild left basilar atelectasis/infiltrate. echo <Conclusion> The ejection fraction is severely impaired. The Ejection Fraction is 30%. There is global hypokinesis of the left ventricle. Doppler and Color Flow revealed mild tricuspid regurgitation. There is moderate pulmonary hypertension. The PA pressure was estimated at 47 mmHg. Plan . WILL CONTINUE SUPPORT REEVALUATE ONCE PT IS BACK TO NORMAL TEMP FAMILY CONTEMPLATING WITHDRAWAL OF CARE SENIOR CARE PROGNOSIS IS POOR FOLLOW NEURO AND CARD INPUT MALA DIAMOND MD Nov 21, 2018 09:19
[2018-11-21 09:29] LABS: BASE EXCESS ABG -4 mmol/L (-3-3); HCO3 ABG 23 mmol/L (21-28); PCO2 ABG 48 mmHg (35-46); PO2 ABG 94 mmHg (65-108); SAT O2 ABG 96 % (92-99)
--- NOTE | 2018-11-21 09:41 | CARD ---
MR#: [id number] Date of Study: 11/21/2018 Ordering Physician: ROSELINE TRUJILLO, Referring Physician: LEN SOTELO Tech: Maxine Simpson [facility] APPROVED REPORT EXAM: Two-dimensional and M-mode echocardiogram with Doppler and color Doppler. Other Information Quality : Technically LimitedHR: 45bpm Rhythm : BradycardiaTechnically limited study due to body habitus. INDICATION Post cardiac arrest 2D DIMENSIONS RVDd2.9 (2.9-3.5cm)Left Atrium(2D)4.2 (1.6-4.0cm) IVSd1.1 (0.7-1.1cm)Aortic Root(2D)2.7 (2.0-3.7cm) LVDd6.0 (3.9-5.9cm)LVOT Diameter1.8 (1.8-2.4cm) PWd1.3 (0.7-1.1cm)LVDs5.3 (2.5-4.0cm) FS (%) 10.5 %SV40.1 ml LVEF(%)22.5 (>50%) Aortic Valve AoV Peak Lennox.187.4cm/sAoV VTI41.6cm AO Peak GR.14.0mmHgLVOT VTI 29.09cm AO Mean GR.6mmHgAVA (VMAX)1.50cm2 VIDYA (VTI)1.60cm2 Mitral Valve MV E Sbnmafka082.3cm/sMV DECEL [id number] MV A Nnnoflbi005.7cm/sE/A Ratio0.9 MV A [id number] Tricuspid Valve TR P. [id number]/sRAP [id number] TR Peak Gr.[id number] LEFT VENTRICLE The Left Ventricle is mildly dilated. There is mild concentric left ventricular hypertrophy. The ejec tion fraction is severely impaired. The Ejection Fraction is 30%. There is global hypokinesis of the left ventricle. Transmitral Doppler flow pattern is abnormal. RIGHT VENTRICLE The right ventricle is normal size. There is normal right ventricular wall thickness. The right ventr icular systolic function is normal. ATRIA The left atrium is mildly dilated. The right atrium size is normal. The interatrial septum is intact with no evidence for an atrial septal defect or patent foramen ovale as noted on 2-D or Doppler imagi ng. AORTIC VALVE The aortic valve is not well visualized. Doppler and Color Flow revealed no significant aortic regurg itation. There is no significant aortic valvular stenosis. MITRAL VALVE Mitral annular calcification is moderate. There is no evidence of mitral valve prolapse. There is no mitral valve stenosis. Doppler and Color-flow revealed trace mitral regurgitation. TRICUSPID VALVE The tricuspid valve is normal in structure and function. Doppler and Color Flow revealed mild tricusp id regurgitation. There is moderate pulmonary hypertension. The PA pressure was estimated at 47 mmHg. There is no tricuspid valve prolapse or vegetation. There is no tricuspid valve stenosis. PULMONIC VALVE The pulmonic valve is not well visualized. GREAT VESSELS The aortic root is normal in size. The ascending aorta is normal in size. PERICARDIAL EFFUSION There is no evidence of significant pericardial effusion. Critical Notification Critical Value: No <Conclusion> The ejection fraction is severely impaired. The Ejection Fraction is 30%. There is global hypokinesis of the left ventricle. Doppler and Color Flow revealed mild tricuspid regurgitation. There is moderate pulmonary hypertensio n. The PA pressure was estimated at 47 mmHg. Signed by : Martin Alexandre, Electronically Approved : 11/21/2018 09:40:59
[2018-11-21 09:54] LABS: FIO2 ABG 60
[2018-11-21] MEDS: VANCOMYCIN PER PHARMACY MC PRN (10:19)
[2018-11-21 10:34] LABS: CALCIUM 7.5 mg/dL (8.5-10.1); CREATININE 1.6 mg/dL (0.6-1.0); GFR 30.6; MAGNESIUM 1.6 mg/dL (1.8-2.4); PHOSPHORUS 2.9 mg/dL (2.6-4.7); POTASSIUM 3.5 mmol/L (3.5-5.1)
--- NOTE | 2018-11-21 11:27 | NUR ---
SS following for discharge planning. SS reviewed pt chart. Pt is from home with family and is currently on the vent. Palliative Care Consulted. Pt has been on [facility] in the past. SS will continue to follow for discharge planning.
[2018-11-21] MEDS: MIDAZOLAM 100mg/100ml NS BAG 100 ML IV PRN (12:46)
--- NOTE | 2018-11-21 12:49 | PDOC2 ---
PALLIATIVE CARE Palliative Care Note Palliative Care Patient remains on Vent. pressors and Versed. Hypothermia Protocol --plan rewarming to start at 2100. Spoke with daughter and daughter in law. Reviewed plan of care. HR 40's Code Status: DNR--on Vent. Will follow and have more discussion as needed. DENNIS ROWAN Nov 21, 2018 12:49
--- NOTE | 2018-11-21 13:44 | PDOC ---
PROGRESS NOTES Assessment Assessment Anoxia/hypoxia brain injury. Metabolic encephalopathy. Cardiopulmonary arrest, downtime estimated at least 5-10 minutes. In coma. Respiratory failure. VF and V-tach. Seizure. Metabolic acidosis. Diffuse right lung infiltrate. Hyperglycemia, glucose 321. CAD. CHF, EF 15% a month ago. HTN. Obesity. Other medical diseases. Very poor prognosis. RECOMMENDATIONS/PLAN: Life support in ICU at the present time. Hypothermia protocol in processes. Keppra 500 mg IV q12h. Consulted Cardiology. Treat medical and cardiac diseases. Further neurological evaluation after hypothermia protocol. NM brain perfusion study maybe needed on 11/22/18. Consulted Palliative Care team. HISTORY OF THE PRESENT ILLNESS: This is an 83-year-old female patient who was admitted after cardiopulmonary arrest. She has CAD and her recently EF was 15% over a month ago. She had rheumatic heart disease in childhood. She was sitting on a recliner after eating biscuits and gravy and sat back a little bit further which afterwards she was noted by her daughter described as cough and agonal breathing and started shaking her arms, so 911 was called. EMS station is near her family and no CPR started till EMS got there which was about 5-10 minutes from symptoms had started. No notable CP, vomiting or incontinence at that time. She was revealed V-fib and was shocked at least once per staff. She was intubated en route while in ED at [place] apparently had V-tach then went back to . She was on hospice but daughter decided to revoke it and further resuscitation was received and she was eventually transferred to [facility] for further evaluation and treatment. PAST MEDICAL HISTORY Cardiovascular: CHF, HTN, Other (NICM) CENTRAL NERVOUS SYSTEM: Other (RLS) Musculoskeletal: Osteoarthritis PAST SURGICAL HISTORY Mastoid surgery. FAMILY HISTORY Noncontributory SOCIAL HISTORY Smoke: No ALCOHOL: none Drugs: None Lives: with Family ALLERGY: Unknown MEDICATIONS: Refer to MAR REVIEW OF SYSTEMS: Constitutional: Obesity. Head: No recent traumatic brain or head injury. Skin: No edema, or rash. Ear: No infection. Eyes: No vision loss or color blindness. Nose: No bleeding or purulent discharges. Hearing: Hearing decrease. Neck: No injury. Breast: No history of cancer, masses,or discharges. Cardiac: CAD, CHF. Pulmonary: Pneumonia. GI: No GI ulcer. Urinary/genital: UTI. Endocrinologic: Diabetes Mellitus, obesity. Skeletomuscular: No muscular atrophy, deformity. Neurological: see HP. Psychiatric: Denies drug use/abuse. Otherwise, not [id number] review of systems. PHYSICAL EXAMINATION: General appearance is in acute distress. HEENT: Normocephalic and nontraumatic. Eyes, nose, ears, and throat are unremarkable. Neck is supple. No lymphadenopathy. No crepitus. Cardiovascular: S1, S2. Pulmonary: On vent. Abdomen: Bowel sounds are positive. Extremities: No rash. No restriction of range of motion NEUROLOGICAL EXAMINATION: Unresponsiveness. In coma. Not oriented to time, place and person. Pupils about 2 mm, not sensitive to light stimuli. EOMI not elicited. Corneal reflex not elicited. Doll's sign not elicited. No gag nor cough reflexes per nurse. CN: no acute focal findings. Muscle tone: decreased. Muscle strength: No movements noted to stimuli. DTR: 0-1 Plantar reflex: No response bilaterally Gait: Unable to walk. Sensory exam: no response to painful stimuli. Not able to access cerebellar signs. F-T-N test not performed in unresponsive state. Objective Objective Vital Signs Date Time Temp Pulse Resp B/P (MAP) Pulse Ox O2 Delivery O2 Flow Rate FiO2 11/21/18 13:37 95 Ventilator 11/21/18 06:30 87/69 (75) 11/21/18 06:00 91.7 42 28 91.7 Intake and Output 11/21/18 07:00 Intake Total 4093 ml Output Total 512 ml Balance 3581 ml IV Total 4093 ml Output Urine Total 112 ml Gastric Drainage Total 400 ml Vitals Signs Vitals VS - Last 72 Hours, by Label Date Time Temp Pulse Resp B/P (MAP) Pulse Ox O2 Delivery O2 Flow Rate FiO2 11/21/18 13:37 95 Ventilator 11/21/18 12:25 95 Ventilator 11/21/18 12:00 Mechanical Ventilator 11/21/18 10:13 99 Ventilator 11/21/18 08:00 99 Ventilator 11/21/18 08:00 Mechanical Ventilator 11/21/18 06:30 87/69 (75) 11/21/18 06:00 91.7 42 28 79/56 (64) 99 Ventilator 91.7 11/21/18 05:35 99 Ventilator 11/21/18 05:00 91.7 42 28 118/61 (80) 99 Ventilator 91.7 11/21/18 04:00 Mechanical Ventilator 11/21/18 04:00 91.7 44 28 92/61 (71) 99 Ventilator 91.7 11/21/18 03:00 91.7 50 28 114/76 (89) 99 Ventilator 91.7 11/21/18 02:55 98 Ventilator 11/21/18 02:00 92.1 47 28 112/62 (79) 99 Ventilator 92.1 11/21/18 01:45 99 Ventilator 11/21/18 01:00 92.4 56 28 101/60 (74) 99 Ventilator 92.4 11/21/18 00:00 92.8 61 28 105/72 (83) 99 Ventilator 92.8 11/21/18 00:00 Mechanical Ventilator 11/20/18 23:30 99 Ventilator 11/20/18 23:00 93.2 50 28 110/70 (83) 99 Ventilator 93.2 11/20/18 22:00 93.2 44 28 112/65 (81) 99 Ventilator 93.2 11/20/18 21:30 100 Ventilator 11/20/18 21:15 93.2 48 28 85/63 (70) 99 Ventilator 93.2 11/20/18 21:00 93.5 46 28 95/58 (70) 99 Ventilator 93.5 11/20/18 20:45 93.5 54 28 99 Ventilator 93.5 11/20/18 20:30 93.8 52 28 140/66 (90) 99 Ventilator 93.8 11/20/18 20:15 93.8 50 28 106/64 (78) 99 Ventilator 93.8 11/20/18 20:00 Mechanical Ventilator 11/20/18 20:00 94.6 52 28 113/76 (88) 100 Ventilator 94.6 11/20/18 19:45 94.6 50 28 108/71 (83) 100 Ventilator 94.6 11/20/18 19:41 100 Ventilator 11/20/18 19:30 94.6 48 28 111/82 (92) 100 Ventilator 94.6 11/20/18 19:15 94.6 54 28 119/71 (87) 100 Ventilator 94.6 11/20/18 19:00 95.1 54 28 117/70 (86) 100 Ventilator 95.1 11/20/18 18:17 100 Ventilator 11/20/18 18:01 95.0 95.0 11/20/18 18:00 56 28 107/76 (86) 100 Ventilator 11/20/18 17:01 95.3 95.3 11/20/18 17:00 70 28 102/64 (77) 100 Ventilator 11/20/18 16:38 100 Ventilator 11/20/18 16:01 95.9 95.9 11/20/18 16:00 82 28 94/59 (71) 100 Ventilator 11/20/18 16:00 Mechanical Ventilator 11/20/18 15:30 66 28 92/56 (68) 100 Ventilator 11/20/18 15:00 97.0 97.0 11/20/18 15:00 68 28 76/56 (63) 100 Ventilator 11/20/18 14:30 82 28 90/50 (63) 100 Ventilator 11/20/18 14:01 96.8 96.8 11/20/18 14:00 82 28 100 Ventilator 11/20/18 13:15 102 28 100 Ventilator 11/20/18 13:00 100 Ventilator 11/20/18 13:00 Mechanical Ventilator 11/20/18 13:00 100 28 100 Ventilator 11/20/18 12:30 99.1 108 28 105/63 (77) 100 Ventilator 99.1 Laboratory Laboratory Laboratory Tests Test 11/20/18 16:50 11/20/18 20:03 11/20/18 20:36 11/20/18 20:37 White Blood Count 42.5 x10^3/uL (4.0-11.0) 40.1 x10^3/uL (4.0-11.0) Red Blood Count 4.20 x10^6/uL (3.50-5.40) 3.99 x10^6/uL (3.50-5.40) Hemoglobin 10.9 g/dL (12.0-15.5) 10.5 g/dL (12.0-15.5) Hematocrit 35.3 % (36.0-47.0) 33.8 % (36.0-47.0) Mean Corpuscular Volume 84 fL (79-100) 85 fL (79-100) Mean Corpuscular Hemoglobin 26 pg (25-35) 26 pg (25-35) Mean Corpuscular Hemoglobin Concent 31 g/dL (31-37) 31 g/dL (31-37) Red Cell Distribution Width 14.5 % (11.5-14.5) 14.5 % (11.5-14.5) Platelet Count 362 x10^3/uL (140-400) 301 x10^3/uL (140-400) Prothrombin Time 15.4 SEC (11.7-14.0) 16.1 SEC (11.7-14.0) Prothromb Time International Ratio 1.3 (0.8-1.1) 1.3 (0.8-1.1) Sodium Level 138 mmol/L (136-145) 139 mmol/L (136-145) Potassium Level 4.8 mmol/L (3.5-5.1) 4.8 mmol/L (3.5-5.1) Chloride Level 97 mmol/L (98-107) 100 mmol/L (98-107) Carbon Dioxide Level 29 mmol/L (21-32) 23 mmol/L (21-32) Anion Gap 12 (6-14) 16 (6-14) Blood Urea Nitrogen 30 mg/dL (7-20) 34 mg/dL (7-20) Creatinine 1.7 mg/dL (0.6-1.0) 1.6 mg/dL (0.6-1.0) Estimated GFR (Cockcroft-Gault) 28.6 30.6 BUN/Creatinine Ratio 18 (6-20) 21 (6-20) Glucose Level 415 mg/dL (70-99) 456 mg/dL (70-99) Calcium Level 8.2 mg/dL (8.5-10.1) 7.7 mg/dL (8.5-10.1) Magnesium Level 1.9 mg/dL (1.8-2.4) 1.7 mg/dL (1.8-2.4) Total Bilirubin 0.3 mg/dL (0.2-1.0) 0.3 mg/dL (0.2-1.0) Aspartate Amino Transf (AST/SGOT) 229 U/L (15-37) 172 U/L (15-37) Alanine Aminotransferase (ALT/SGPT) 243 U/L (14-59) 211 U/L (14-59) Alkaline Phosphatase 94 U/L (46-116) 87 U/L (46-116) Total Protein 6.2 g/dL (6.4-8.2) 5.9 g/dL (6.4-8.2) Albumin 2.7 g/dL (3.4-5.0) 2.4 g/dL (3.4-5.0) Albumin/Globulin Ratio 0.8 (1.0-1.7) 0.7 (1.0-1.7) O2 Saturation % (92-99) Arterial Blood pH 7.33 (7.35-7.45) Arterial Blood pH (Temp corrected) 7.36 Arterial Blood pCO2 at Patient Temp 39 mmHg (35-46) Arterial Blood pCO2 (Temp correct) 35 mmHg Arterial Blood pO2 at Patient Temp 88 mmHg (65-108) Arterial Blood pO2 (Temp corrected) 77 mmHg Arterial Blood HCO3 20 mmol/L (21-28) Arterial Blood Base Excess -5 mmol/L (-3-3) FiO2 60 Glucose (Fingerstick) 436 mg/dL (70-99) Neutrophils (%) (Auto) 90 % (31-73) Lymphocytes (%) (Auto) 4 % (24-48) Monocytes (%) (Auto) 6 % (0-9) Eosinophils (%) (Auto) 0 % (0-3) Basophils (%) (Auto) 0 % (0-3) Neutrophils # (Auto) 36.1 x10^3uL (1.8-7.7) Lymphocytes # (Auto) 1.7 x10^3/uL (1.0-4.8) Monocytes # (Auto) 2.4 x10^3/uL (0.0-1.1) Eosinophils # (Auto) 0.0 x10^3/uL (0.0-0.7) Basophils # (Auto) 0.0 x10^3/uL (0.0-0.2) Segmented Neutrophils % 61 % (35-66) Band Neutrophils % 27 % (0-9) Lymphocytes % 5 % (24-48) Monocytes % 6 % (0-10) Eosinophils % 1 % (0-5) Platelet Estimate Adequate (ADEQUATE) Phosphorus Level 4.1 mg/dL (2.6-4.7) Troponin I Quantitative 1.688 ng/mL (0.000-0.055) Test 11/20/18 22:20 11/20/18 23:20 11/21/18 00:34 11/21/18 01:30 Glucose (Fingerstick) 376 mg/dL (70-99) 394 mg/dL (70-99) 356 mg/dL (70-99) Sodium Level 141 mmol/L (136-145) Potassium Level 3.6 mmol/L (3.5-5.1) Chloride Level 102 mmol/L (98-107) Carbon Dioxide Level 26 mmol/L (21-32) Anion Gap 13 (6-14) Blood Urea Nitrogen 37 mg/dL (7-20) Creatinine 1.9 mg/dL (0.6-1.0) Estimated GFR (Cockcroft-Gault) 25.1 Glucose Level 362 mg/dL (70-99) Calcium Level 7.7 mg/dL (8.5-10.1) Phosphorus Level 3.2 mg/dL (2.6-4.7) Magnesium Level 1.5 mg/dL (1.8-2.4) Test 11/21/18 01:39 11/21/18 03:05 11/21/18 04:16 11/21/18 06:00 Glucose (Fingerstick) 308 mg/dL (70-99) 264 mg/dL (70-99) 192 mg/dL (70-99) White Blood Count 37.9 x10^3/uL (4.0-11.0) Red Blood Count 4.00 x10^6/uL (3.50-5.40) Hemoglobin 10.5 g/dL (12.0-15.5) Hematocrit 33.9 % (36.0-47.0) Mean Corpuscular Volume 85 fL (79-100) Mean Corpuscular Hemoglobin 26 pg (25-35) Mean Corpuscular Hemoglobin Concent 31 g/dL (31-37) Red Cell Distribution Width 14.6 % (11.5-14.5) Platelet Count 264 x10^3/uL (140-400) Prothrombin Time 15.3 SEC (11.7-14.0) Prothromb Time International Ratio 1.2 (0.8-1.1) Sodium Level 142 mmol/L (136-145) Potassium Level 3.5 mmol/L (3.5-5.1) Chloride Level 104 mmol/L (98-107) Carbon Dioxide Level 23 mmol/L (21-32) Anion Gap 15 (6-14) Blood Urea Nitrogen 39 mg/dL (7-20) Creatinine 1.7 mg/dL (0.6-1.0) Estimated GFR (Cockcroft-Gault) 28.6 Glucose Level 204 mg/dL (70-99) Calcium Level 7.7 mg/dL (8.5-10.1) Phosphorus Level 2.9 mg/dL (2.6-4.7) Magnesium Level 1.7 mg/dL (1.8-2.4) Test 11/21/18 06:02 11/21/18 08:55 11/21/18 08:56 11/21/18 09:55 Glucose (Fingerstick) 183 mg/dL (70-99) 128 mg/dL (70-99) O2 Saturation 96 % (92-99) Arterial Blood pH 7.30 (7.35-7.45) Arterial Blood pCO2 at Patient Temp 48 mmHg (35-46) Arterial Blood pO2 at Patient Temp 94 mmHg (65-108) Arterial Blood HCO3 23 mmol/L (21-28) Arterial Blood Base Excess -4 mmol/L (-3-3) FiO2 60 Sodium Level 145 mmol/L (136-145) Potassium Level 3.5 mmol/L (3.5-5.1) Chloride Level 106 mmol/L (98-107) Carbon Dioxide Level 28 mmol/L (21-32) Anion Gap 11 (6-14) Blood Urea Nitrogen 39 mg/dL (7-20) Creatinine 1.6 mg/dL (0.6-1.0) Estimated GFR (Cockcroft-Gault) 30.6 Glucose Level 107 mg/dL (70-99) Calcium Level 7.5 mg/dL (8.5-10.1) Phosphorus Level 2.9 mg/dL (2.6-4.7) Magnesium Level 1.6 mg/dL (1.8-2.4) Test 11/21/18 10:09 11/21/18 11:16 11/21/18 12:52 Glucose (Fingerstick) 99 mg/dL (70-99) 84 mg/dL (70-99) 109 mg/dL (70-99) Medication Medications Current Medications Famotidine (Pepcid Vial) 20 mg QHS IVP ; Start 11/21/18 at 21:00 Heparin Sodium (Porcine) (Heparin Sodium) 5,000 unit Q8HRS SQ ; Start 11/21/18 at 14:00 Insulin Human Regular 150 unit/ Sodium Chloride 151.5 ml @ 0 mls/hr CONT PRN IV SEE I/O RECORD Last administered on 11/20/18at 21:10; Start 11/20/18 at 20:45 Levetiracetam 1000 mg/Dextrose 110 ml @ 440 mls/hr 1X ONCE IV Last administered on 11/20/18at 17:12; Start 11/20/18 at 15:30; Stop 11/20/18 at 15:44 ; Status DC Levetiracetam 500 mg/Dextrose 105 ml @ 420 mls/hr Q12HR IV Last administered on 11/20/18at 12:57; Start 11/21/18 at 09:00 Lorazepam (Ativan) 1 mg PRN Q30MIN PRN IV SEDATION Last administered on at 01:58; Start 11/21/18 at 01:45 Piperacillin Sod/ Tazobactam Sod (Zosyn Per Pharmacy) 1 each PRN DAILY PRN MC SEE COMMENTS; Start 11/20/18 at 19:45 Piperacillin Sod/ Tazobactam Sod 2.25 gm/Sodium Chloride 50 ml @ 100 mls/hr Q6HRS IV Last administered on 11/21/18at 12:49; Start 11/20/18 at 20:30 Sodium Chloride 500 ml @ 500 mls/hr 1X ONCE IV Last administered on at 19:48; Start 11/20/18 at 19:45; Stop 11/20/18 at 20:44; Status DC Sodium Chloride 1,000 ml @ 100 mls/hr Q10H IV Last administered on 11/21/18at 08:01; Start 11/20/18 at 19:45 Vancomycin HCl (Vanco Per Pharmacy) 1 each PRN DAILY PRN MC SEE COMMENTS Last administered on 11/21/18at 10:19; Start 11/20/18 at 19:45 Vancomycin HCl (Vancomycin Trough Level) 1 each 1X ONCE MC ; Start 11/22/18 at 20:30; Stop 11/22/18 at 20:31 Vancomycin HCl 1.25 gm/Sodium Chloride 250 ml @ 166.667 mls/hr Q24H IV ; Start 11/21/18 at 21:00 Vancomycin HCl 2 gm/Sodium Chloride 500 ml @ 250 mls/hr 1X ONCE IV Last administered on 11/20/18at 20:40; Start 11/20/18 at 21:00; Stop 11/20/18 at 22:59 ; Status DC Comment Review of Relevant I have reviewed the following items karson (where applicable) has been applied. KAI MENDEZ MD Nov 21, 2018 13:44
[2018-11-21] MEDS: HEPARIN for SUB-Q USE 5,000 UNIT/ML VIAL. SQ SCH ×2 (14:00→21:53)
[2018-11-21 14:20] LABS: BASO # 0.2 x10^3/uL (0.0-0.2); BASO % 0 % (0-3); EOS % 0 % (0-3); HEMATOCRIT 32.3 % (36.0-47.0); HEMOGLOBIN 10.3 g/dL (12.0-15.5); LYMPH # 2.2 x10^3/uL (1.0-4.8); LYMPH % 5 % (24-48); MEAN CORPUSCULAR HEMOGLOBIN 26 pg (25-35); MEAN CORPUSCULAR HGB CONC 32 g/dL (31-37); MEAN CORPUSCULAR VOLUME 83 fL (79-100); MONO # 2.3 x10^3/uL (0.0-1.1); MONO % 6 % (0-9); NEUT # 36.7 x10^3uL (1.8-7.7); NEUT % 89 % (31-73); PLATELET COUNT 243 x10^3/uL (140-400); RED BLOOD COUNT 3.89 x10^6/uL (3.50-5.40); RED CELL DISTRIBUTION WIDTH 14.3 % (11.5-14.5)
[2018-11-21 14:26] LABS: PROTHROMBIN TIME PATIENT 14.7 SEC (11.7-14.0)
[2018-11-21 14:31] LABS: WHITE BLOOD COUNT 41.4 x10^3/uL (4.0-11.0)
[2018-11-21 18:42] LABS: CALCIUM 7.6 mg/dL (8.5-10.1); CREATININE 1.5 mg/dL (0.6-1.0); POTASSIUM 3.8 mmol/L (3.5-5.1)
[2018-11-21 18:45] LABS: MAGNESIUM 1.6 mg/dL (1.8-2.4); PHOSPHORUS 3.9 mg/dL (2.6-4.7)
[2018-11-21] MEDS: levETIRAcetam 500 MG in IV DEXTROSE 5% 100ML 100 ML IV SCH (20:55)
[2018-11-21] MEDS ORDERED: FAMOTIDINE 20 MG/2 ML VIAL IVP SCH (21:00)
[2018-11-21] MEDS ORDERED: VANCOMYCIN 1.25 GM in IV NORMAL SALINE 250ML 250 ML IV SCH (21:00)
[2018-11-21 22:07] LABS: BASO # 0.2 x10^3/uL (0.0-0.2); BASO % 1 % (0-3); EOS % 0 % (0-3); HEMATOCRIT 31.7 % (36.0-47.0); HEMOGLOBIN 10.1 g/dL (12.0-15.5); LYMPH # 1.5 x10^3/uL (1.0-4.8); LYMPH % 4 % (24-48); MEAN CORPUSCULAR HEMOGLOBIN 27 pg (25-35); MEAN CORPUSCULAR HGB CONC 32 g/dL (31-37); MEAN CORPUSCULAR VOLUME 83 fL (79-100); MONO # 1.9 x10^3/uL (0.0-1.1); MONO % 5 % (0-9); NEUT # 37.1 x10^3uL (1.8-7.7); NEUT % 91 % (31-73); PLATELET COUNT 230 x10^3/uL (140-400); RED BLOOD COUNT 3.81 x10^6/uL (3.50-5.40); RED CELL DISTRIBUTION WIDTH 14.9 % (11.5-14.5)
[2018-11-21 22:10] LABS: WHITE BLOOD COUNT 40.7 x10^3/uL (4.0-11.0)
[2018-11-21 22:13] LABS: PROTHROMBIN TIME PATIENT 14.8 SEC (11.7-14.0)
[2018-11-21 22:15] LABS: CALCIUM 7.3 mg/dL (8.5-10.1); CREATININE 1.5 mg/dL (0.6-1.0); MAGNESIUM 1.6 mg/dL (1.8-2.4); PHOSPHORUS 3.9 mg/dL (2.6-4.7); POTASSIUM 3.9 mmol/L (3.5-5.1)
--- NOTE | 2018-11-21 22:44 | PN ---
DATE: 11/21/2018 SUBJECTIVE: The patient continued to be intubated, mechanically ventilated. She continued to be on Levophed maximum dose. She was also on Versed drip as well as Keppra for seizure disorder, insulin drip, was also started on IV antibiotic in the form of vancomycin and Zosyn for possible aspiration pneumonia. When I saw her this morning, she was resting slightly propped up in bed, in no apparent respiratory distress. She continues to be intubated, mechanically ventilated on hypothermia protocol. OBJECTIVE: GENERAL: On examining her, she was pale, but no jaundice, cyanosis, or thyromegaly. No jugular venous distension. No lower limb edema. VITAL SIGNS: Her heart rate was 42, blood pressure was 87/69, temperature was 91.7, respiratory rate was 28 and oxygen saturation was 99%. HEAD, EYES, EARS, NOSE AND THROAT: Showed normocephalic, atraumatic. She has an orotracheal and orogastric tube in place. NECK: Supple. HEART: Showed normal first and second sounds. No gallop, rub or murmur. CHEST: Shows central trachea, equal bilateral expansion air entry. I could not really appreciate any crepitation or rhonchi anteriorly. ABDOMEN: Distended, soft, nontender. NEUROLOGIC: She is encephalopathic. Her intake over the last 24 hours was 4100, output was 512. LABORATORY DATA: This morning showed serum sodium 141, potassium 3.6, chloride 102, bicarbonate 26, anion gap of 13, BUN 37, creatinine 1.9, estimated GFR was 27 mL per minute. Her glucose was 362, calcium was 7.7, phosphorus 3.2 and magnesium was 1.7. Her white cell count was down to 40,000, hemoglobin 10.5, hematocrit 33.8, MCV 85, and platelet count of 301,000. Her blood gas this morning showed pH of 7.33, pCO2 of 39, pO2 of 88 and oxygen saturation was 100% on FIO2 of 60%. Her prothrombin time was 15.3, INR of 1.2. In summary, this is an 83-year-old female patient with: 1. Out of hospital cardiopulmonary arrest with ventricular fibrillation, ventricular tachycardia for which she had had ____ shocks, presented to the Emergency Room with sinus rhythm and left bundle-branch block. She apparently had 5-10 minutes without CPR with described agonal breathing, suspected triggered potentially by aspiration. 2. [id number] systolic congestive heart failure. 3. Acute respiratory failure for which she was intubated, mechanically ventilated. 4. Anoxic encephalopathy with seizure episodes. 5. Right upper lobe pneumonia with possible aspiration. 6. The patient is actually hypotensive, on Levophed. 7. Type 2 diabetes mellitus. 8. Hyperlipidemia. 9. Nonischemic cardiomyopathy with known ejection fraction of less than 15%. 10. Has apparently history of rheumatic heart disease. PLAN: The patient continued to be on IV Levophed, hypothermia protocol. Continued to be on Keppra, IV antibiotic. The patient has had a CT scan done yesterday, which showed no intracranial pathology. My plan is to continue with her current management and await the result of discussion with the family given the fact that she has had sustained anoxic encephalopathy, she has seizures, she has severe systolic congestive heart failure with ejection fraction of less than 15% and she was at one point in time in hospice. LEN SOTELO MD DR: TELMA/sagar JOB#: [id number] / [id number]
[2018-11-22] VITALS (15 sets, daily range): BP systolic 67–128; BP diastolic 42–64
[2018-11-22 02:37] LABS: CALCIUM 7.3 mg/dL (8.5-10.1); CREATININE 1.5 mg/dL (0.6-1.0); MAGNESIUM 1.6 mg/dL (1.8-2.4)
[2018-11-22] MEDS: NOREPINEPHRIN 8MG/250ML PREMIX 250 ML IV PRN ×2 (03:14→13:18)
[2018-11-22] MEDS: PIPERACILLIN/TAZOBACTAM 2.25 GM in IV NORMAL SALINE 50ML 50 ML IV SCH ×2 (06:00→12:00)
[2018-11-22] MEDS: HEPARIN for SUB-Q USE 5,000 UNIT/ML VIAL. SQ SCH ×2 (06:01→14:00)
[2018-11-22 06:07] LABS: HEMATOCRIT 30.7 % (36.0-47.0); HEMOGLOBIN 9.8 g/dL (12.0-15.5); RED BLOOD COUNT 3.73 x10^6/uL (3.50-5.40); RED CELL DISTRIBUTION WIDTH 14.6 % (11.5-14.5); WHITE BLOOD COUNT 38.8 x10^3/uL (4.0-11.0)
[2018-11-22 06:39] LABS: ALBUMIN 2.2 g/dL (3.4-5.0); ALBUMIN/GLOBULIN RATIO 0.6 (1.0-1.7); CALCIUM 7.3 mg/dL (8.5-10.1); CREATININE 1.6 mg/dL (0.6-1.0); GFR 30.6; POTASSIUM 3.8 mmol/L (3.5-5.1); TOTAL BILIRUBIN 0.5 mg/dL (0.2-1.0); TOTAL PROTEIN 5.9 g/dL (6.4-8.2)
[2018-11-22 07:01] LABS: PROTHROMBIN TIME PATIENT 15.2 SEC (11.7-14.0)
[2018-11-22 07:02] LABS: MAGNESIUM 1.6 mg/dL (1.8-2.4); PHOSPHORUS 3.9 mg/dL (2.6-4.7)
--- NOTE | 2018-11-22 07:50 | RAD ---
Portable chest, 11/22/2018: HISTORY: Respiratory failure Comparison is made to yesterday's study. The patient is rotated to the left. The right jugular central venous catheter extends into the superior aspect of the right atrium. An ET tube remains in place in satisfactory position. An NG tube extends into the stomach. The heart is enlarged. Moderate patchy right pulmonary infiltrate has improved. There is an unchanged left basilar opacity compatible with ongoing atelectasis/infiltrate. A component of left-sided pleural fluid cannot be excluded. No new abnormality is seen. IMPRESSION: 1. Stable tube positions. 2. Improving right pulmonary infiltrates. Electronically signed by: Omar Francois MD (11/22/2018 7:47 AM) [facility]
[2018-11-22 08:06] LABS: BASE EXCESS ABG -6 mmol/L (-3-3); HCO3 ABG 18 mmol/L (21-28); PCO2 ABG 30 mmHg (35-46); SAT O2 ABG 97 % (92-99)
[2018-11-22] MEDS: VANCOMYCIN PER PHARMACY MC PRN (09:16)
[2018-11-22] MEDS: IV NORMAL SALINE 1000ML BAG 1,000 ML IV SCH (09:23)
[2018-11-22] MEDS: levETIRAcetam 500 MG in IV DEXTROSE 5% 100ML 100 ML IV SCH (09:29)
[2018-11-22] MEDS ORDERED: DEXTROSE 50% 25 GM / 50ML DISP.SYRIN. IV PRN (11:00)
--- NOTE | 2018-11-22 11:02 | PDOC ---
PULMONARY PROGRESS NOTES Subjective OFF SEDATION SINCE THIS AM AT 0700 NO RESPONSE IV KEPPRA Vitals Vital Signs Date Time Temp Pulse Resp B/P (MAP) Pulse Ox O2 Delivery O2 Flow Rate FiO2 11/22/18 10:27 100 Ventilator 11/22/18 10:00 96.0 66 115/45 (68) 96.0 11/22/18 09:00 33 Lungs: Clear Cardiovascular: S1, S2 Abdomen: Soft Extremities: Other (EDEMA) Skin: Warm Labs Laboratory Tests Test 11/20/18 13:05 11/20/18 13:30 11/20/18 16:50 11/20/18 20:03 O2 Saturation % (92-99) % (92-99) Arterial Blood pH 7.31 (7.35-7.45) 7.33 (7.35-7.45) Arterial Blood pCO2 at Patient Temp 51 mmHg (35-46) 39 mmHg (35-46) Arterial Blood pO2 at Patient Temp 265 mmHg (65-108) 88 mmHg (65-108) Arterial Blood HCO3 25 mmol/L (21-28) 20 mmol/L (21-28) Arterial Blood Base Excess -2 mmol/L (-3-3) -5 mmol/L (-3-3) FiO2 100 60 Glucose (Fingerstick) 321 mg/dL (70-99) White Blood Count 42.5 x10^3/uL (4.0-11.0) Red Blood Count 4.20 x10^6/uL (3.50-5.40) Hemoglobin 10.9 g/dL (12.0-15.5) Hematocrit 35.3 % (36.0-47.0) Mean Corpuscular Volume 84 fL (79-100) Mean Corpuscular Hemoglobin 26 pg (25-35) Mean Corpuscular Hemoglobin Concent 31 g/dL (31-37) Red Cell Distribution Width 14.5 % (11.5-14.5) Platelet Count 362 x10^3/uL (140-400) Prothrombin Time 15.4 SEC (11.7-14.0) Prothromb Time International Ratio 1.3 (0.8-1.1) Sodium Level 138 mmol/L (136-145) Potassium Level 4.8 mmol/L (3.5-5.1) Chloride Level 97 mmol/L (98-107) Carbon Dioxide Level 29 mmol/L (21-32) Anion Gap 12 (6-14) Blood Urea Nitrogen 30 mg/dL (7-20) Creatinine 1.7 mg/dL (0.6-1.0) Estimated GFR (Cockcroft-Gault) 28.6 BUN/Creatinine Ratio 18 (6-20) Glucose Level 415 mg/dL (70-99) Calcium Level 8.2 mg/dL (8.5-10.1) Magnesium Level 1.9 mg/dL (1.8-2.4) Total Bilirubin 0.3 mg/dL (0.2-1.0) Aspartate Amino Transf (AST/SGOT) 229 U/L (15-37) Alanine Aminotransferase (ALT/SGPT) 243 U/L (14-59) Alkaline Phosphatase 94 U/L (46-116) Total Protein 6.2 g/dL (6.4-8.2) Albumin 2.7 g/dL (3.4-5.0) Albumin/Globulin Ratio 0.8 (1.0-1.7) Arterial Blood pH (Temp corrected) 7.36 Arterial Blood pCO2 (Temp correct) 35 mmHg Arterial Blood pO2 (Temp corrected) 77 mmHg Test 11/20/18 20:36 11/20/18 20:37 11/20/18 22:20 11/20/18 23:20 Glucose (Fingerstick) 436 mg/dL (70-99) 376 mg/dL (70-99) 394 mg/dL (70-99) White Blood Count 40.1 x10^3/uL (4.0-11.0) Red Blood Count 3.99 x10^6/uL (3.50-5.40) Hemoglobin 10.5 g/dL (12.0-15.5) Hematocrit 33.8 % (36.0-47.0) Mean Corpuscular Volume 85 fL (79-100) Mean Corpuscular Hemoglobin 26 pg (25-35) Mean Corpuscular Hemoglobin Concent 31 g/dL (31-37) Red Cell Distribution Width 14.5 % (11.5-14.5) Platelet Count 301 x10^3/uL (140-400) Neutrophils (%) (Auto) 90 % (31-73) Lymphocytes (%) (Auto) 4 % (24-48) Monocytes (%) (Auto) 6 % (0-9) Eosinophils (%) (Auto) 0 % (0-3) Basophils (%) (Auto) 0 % (0-3) Neutrophils # (Auto) 36.1 x10^3uL (1.8-7.7) Lymphocytes # (Auto) 1.7 x10^3/uL (1.0-4.8) Monocytes # (Auto) 2.4 x10^3/uL (0.0-1.1) Eosinophils # (Auto) 0.0 x10^3/uL (0.0-0.7) Basophils # (Auto) 0.0 x10^3/uL (0.0-0.2) Segmented Neutrophils % 61 % (35-66) Band Neutrophils % 27 % (0-9) Lymphocytes % 5 % (24-48) Monocytes % 6 % (0-10) Eosinophils % 1 % (0-5) Platelet Estimate Adequate (ADEQUATE) Prothrombin Time 16.1 SEC (11.7-14.0) Prothromb Time International Ratio 1.3 (0.8-1.1) Sodium Level 139 mmol/L (136-145) Potassium Level 4.8 mmol/L (3.5-5.1) Chloride Level 100 mmol/L (98-107) Carbon Dioxide Level 23 mmol/L (21-32) Anion Gap 16 (6-14) Blood Urea Nitrogen 34 mg/dL (7-20) Creatinine 1.6 mg/dL (0.6-1.0) Estimated GFR (Cockcroft-Gault) 30.6 BUN/Creatinine Ratio 21 (6-20) Glucose Level 456 mg/dL (70-99) Calcium Level 7.7 mg/dL (8.5-10.1) Phosphorus Level 4.1 mg/dL (2.6-4.7) Magnesium Level 1.7 mg/dL (1.8-2.4) Total Bilirubin 0.3 mg/dL (0.2-1.0) Aspartate Amino Transf (AST/SGOT) 172 U/L (15-37) Alanine Aminotransferase (ALT/SGPT) 211 U/L (14-59) Alkaline Phosphatase 87 U/L (46-116) Troponin I Quantitative 1.688 ng/mL (0.000-0.055) Total Protein 5.9 g/dL (6.4-8.2) Albumin 2.4 g/dL (3.4-5.0) Albumin/Globulin Ratio 0.7 (1.0-1.7) Test 11/21/18 00:34 11/21/18 01:30 11/21/18 01:39 11/21/18 03:05 Glucose (Fingerstick) 356 mg/dL (70-99) 308 mg/dL (70-99) 264 mg/dL (70-99) Sodium Level 141 mmol/L (136-145) Potassium Level 3.6 mmol/L (3.5-5.1) Chloride Level 102 mmol/L (98-107) Carbon Dioxide Level 26 mmol/L (21-32) Anion Gap 13 (6-14) Blood Urea Nitrogen 37 mg/dL (7-20) Creatinine 1.9 mg/dL (0.6-1.0) Estimated GFR (Cockcroft-Gault) 25.1 Glucose Level 362 mg/dL (70-99) Calcium Level 7.7 mg/dL (8.5-10.1) Phosphorus Level 3.2 mg/dL (2.6-4.7) Magnesium Level 1.5 mg/dL (1.8-2.4) Test 11/21/18 04:16 11/21/18 06:00 11/21/18 06:02 11/21/18 08:55 Glucose (Fingerstick) 192 mg/dL (70-99) 183 mg/dL (70-99) White Blood Count 37.9 x10^3/uL (4.0-11.0) Red Blood Count 4.00 x10^6/uL (3.50-5.40) Hemoglobin 10.5 g/dL (12.0-15.5) Hematocrit 33.9 % (36.0-47.0) Mean Corpuscular Volume 85 fL (79-100) Mean Corpuscular Hemoglobin 26 pg (25-35) Mean Corpuscular Hemoglobin Concent 31 g/dL (31-37) Red Cell Distribution Width 14.6 % (11.5-14.5) Platelet Count 264 x10^3/uL (140-400) Prothrombin Time 15.3 SEC (11.7-14.0) Prothromb Time International Ratio 1.2 (0.8-1.1) Sodium Level 142 mmol/L (136-145) Potassium Level 3.5 mmol/L (3.5-5.1) Chloride Level 104 mmol/L (98-107) Carbon Dioxide Level 23 mmol/L (21-32) Anion Gap 15 (6-14) Blood Urea Nitrogen 39 mg/dL (7-20) Creatinine 1.7 mg/dL (0.6-1.0) Estimated GFR (Cockcroft-Gault) 28.6 Glucose Level 204 mg/dL (70-99) Calcium Level 7.7 mg/dL (8.5-10.1) Phosphorus Level 2.9 mg/dL (2.6-4.7) Magnesium Level 1.7 mg/dL (1.8-2.4) O2 Saturation 96 % (92-99) Arterial Blood pH 7.30 (7.35-7.45) Arterial Blood pCO2 at Patient Temp 48 mmHg (35-46) Arterial Blood pO2 at Patient Temp 94 mmHg (65-108) Arterial Blood HCO3 23 mmol/L (21-28) Arterial Blood Base Excess -4 mmol/L (-3-3) FiO2 60 Test 11/21/18 08:56 11/21/18 09:55 11/21/18 10:09 11/21/18 11:16 Glucose (Fingerstick) 128 mg/dL (70-99) 99 mg/dL (70-99) 84 mg/dL (70-99) Sodium Level 145 mmol/L (136-145) Potassium Level 3.5 mmol/L (3.5-5.1) Chloride Level 106 mmol/L (98-107) Carbon Dioxide Level 28 mmol/L (21-32) Anion Gap 11 (6-14) Blood Urea Nitrogen 39 mg/dL (7-20) Creatinine 1.6 mg/dL (0.6-1.0) Estimated GFR (Cockcroft-Gault) 30.6 Glucose Level 107 mg/dL (70-99) Calcium Level 7.5 mg/dL (8.5-10.1) Phosphorus Level 2.9 mg/dL (2.6-4.7) Magnesium Level 1.6 mg/dL (1.8-2.4) Test 11/21/18 12:52 11/21/18 14:00 11/21/18 14:07 11/21/18 15:08 Glucose (Fingerstick) 109 mg/dL (70-99) 139 mg/dL (70-99) 125 mg/dL (70-99) White Blood Count 41.4 x10^3/uL (4.0-11.0) Red Blood Count 3.89 x10^6/uL (3.50-5.40) Hemoglobin 10.3 g/dL (12.0-15.5) Hematocrit 32.3 % (36.0-47.0) Mean Corpuscular Volume 83 fL (79-100) Mean Corpuscular Hemoglobin 26 pg (25-35) Mean Corpuscular Hemoglobin Concent 32 g/dL (31-37) Red Cell Distribution Width 14.3 % (11.5-14.5) Platelet Count 243 x10^3/uL (140-400) Neutrophils (%) (Auto) 89 % (31-73) Lymphocytes (%) (Auto) 5 % (24-48) Monocytes (%) (Auto) 6 % (0-9) Eosinophils (%) (Auto) 0 % (0-3) Basophils (%) (Auto) 0 % (0-3) Neutrophils # (Auto) 36.7 x10^3uL (1.8-7.7) Lymphocytes # (Auto) 2.2 x10^3/uL (1.0-4.8) Monocytes # (Auto) 2.3 x10^3/uL (0.0-1.1) Eosinophils # (Auto) 0.0 x10^3/uL (0.0-0.7) Basophils # (Auto) 0.2 x10^3/uL (0.0-0.2) Prothrombin Time 14.7 SEC (11.7-14.0) Prothromb Time International Ratio 1.2 (0.8-1.1) Test 11/21/18 18:10 11/21/18 18:15 11/21/18 21:51 11/21/18 22:00 Glucose (Fingerstick) 140 mg/dL (70-99) 169 mg/dL (70-99) Sodium Level 142 mmol/L (136-145) 143 mmol/L (136-145) Potassium Level 3.8 mmol/L (3.5-5.1) 3.9 mmol/L (3.5-5.1) Chloride Level 104 mmol/L (98-107) 105 mmol/L (98-107) Carbon Dioxide Level 26 mmol/L (21-32) 23 mmol/L (21-32) Anion Gap 12 (6-14) 15 (6-14) Blood Urea Nitrogen 44 mg/dL (7-20) 45 mg/dL (7-20) Creatinine 1.5 mg/dL (0.6-1.0) 1.5 mg/dL (0.6-1.0) Estimated GFR (Cockcroft-Gault) 33.0 33.0 Glucose Level 155 mg/dL (70-99) 187 mg/dL (70-99) Calcium Level 7.6 mg/dL (8.5-10.1) 7.3 mg/dL (8.5-10.1) Phosphorus Level 3.9 mg/dL (2.6-4.7) 3.9 mg/dL (2.6-4.7) Magnesium Level 1.6 mg/dL (1.8-2.4) 1.6 mg/dL (1.8-2.4) White Blood Count 40.7 x10^3/uL (4.0-11.0) Red Blood Count 3.81 x10^6/uL (3.50-5.40) Hemoglobin 10.1 g/dL (12.0-15.5) Hematocrit 31.7 % (36.0-47.0) Mean Corpuscular Volume 83 fL (79-100) Mean Corpuscular Hemoglobin 27 pg (25-35) Mean Corpuscular Hemoglobin Concent 32 g/dL (31-37) Red Cell Distribution Width 14.9 % (11.5-14.5) Platelet Count 230 x10^3/uL (140-400) Neutrophils (%) (Auto) 91 % (31-73) Lymphocytes (%) (Auto) 4 % (24-48) Monocytes (%) (Auto) 5 % (0-9) Eosinophils (%) (Auto) 0 % (0-3) Basophils (%) (Auto) 1 % (0-3) Neutrophils # (Auto) 37.1 x10^3uL (1.8-7.7) Lymphocytes # (Auto) 1.5 x10^3/uL (1.0-4.8) Monocytes # (Auto) 1.9 x10^3/uL (0.0-1.1) Eosinophils # (Auto) 0.0 x10^3/uL (0.0-0.7) Basophils # (Auto) 0.2 x10^3/uL (0.0-0.2) Prothrombin Time 14.8 SEC (11.7-14.0) Prothromb Time International Ratio 1.2 (0.8-1.1) Test 11/22/18 02:15 11/22/18 02:16 11/22/18 05:55 11/22/18 06:00 Sodium Level 141 mmol/L (136-145) 143 mmol/L (136-145) Potassium Level 4.0 mmol/L (3.5-5.1) 3.8 mmol/L (3.5-5.1) Chloride Level 104 mmol/L (98-107) 105 mmol/L (98-107) Carbon Dioxide Level 24 mmol/L (21-32) 22 mmol/L (21-32) Anion Gap 13 (6-14) 16 (6-14) Blood Urea Nitrogen 47 mg/dL (7-20) 47 mg/dL (7-20) Creatinine 1.5 mg/dL (0.6-1.0) 1.6 mg/dL (0.6-1.0) Estimated GFR (Cockcroft-Gault) 33.0 30.6 Glucose Level 191 mg/dL (70-99) 189 mg/dL (70-99) Calcium Level 7.3 mg/dL (8.5-10.1) 7.3 mg/dL (8.5-10.1) Phosphorus Level 4.0 mg/dL (2.6-4.7) 3.9 mg/dL (2.6-4.7) Magnesium Level 1.6 mg/dL (1.8-2.4) 1.6 mg/dL (1.8-2.4) Glucose (Fingerstick) 179 mg/dL (70-99) Prothrombin Time 15.2 SEC (11.7-14.0) Prothromb Time International Ratio 1.2 (0.8-1.1) BUN/Creatinine Ratio 29 (6-20) Total Bilirubin 0.5 mg/dL (0.2-1.0) Aspartate Amino Transf (AST/SGOT) 99 U/L (15-37) Alanine Aminotransferase (ALT/SGPT) 129 U/L (14-59) Alkaline Phosphatase 73 U/L (46-116) Total Protein 5.9 g/dL (6.4-8.2) Albumin 2.2 g/dL (3.4-5.0) Albumin/Globulin Ratio 0.6 (1.0-1.7) White Blood Count 38.8 x10^3/uL (4.0-11.0) Red Blood Count 3.73 x10^6/uL (3.50-5.40) Hemoglobin 9.8 g/dL (12.0-15.5) Hematocrit 30.7 % (36.0-47.0) Mean Corpuscular Volume 82 fL (79-100) Mean Corpuscular Hemoglobin 26 pg (25-35) Mean Corpuscular Hemoglobin Concent 32 g/dL (31-37) Red Cell Distribution Width 14.6 % (11.5-14.5) Platelet Count 241 x10^3/uL (140-400) Test 11/22/18 08:09 11/22/18 09:54 Glucose (Fingerstick) 164 mg/dL (70-99) 196 mg/dL (70-99) Laboratory Tests Test 11/21/18 11:16 11/21/18 12:52 11/21/18 14:00 11/21/18 14:07 Glucose (Fingerstick) 84 mg/dL (70-99) 109 mg/dL (70-99) 139 mg/dL (70-99) White Blood Count 41.4 x10^3/uL (4.0-11.0) Red Blood Count 3.89 x10^6/uL (3.50-5.40) Hemoglobin 10.3 g/dL (12.0-15.5) Hematocrit 32.3 % (36.0-47.0) Mean Corpuscular Volume 83 fL (79-100) Mean Corpuscular Hemoglobin 26 pg (25-35) Mean Corpuscular Hemoglobin Concent 32 g/dL (31-37) Red Cell Distribution Width 14.3 % (11.5-14.5) Platelet Count 243 x10^3/uL (140-400) Neutrophils (%) (Auto) 89 % (31-73) Lymphocytes (%) (Auto) 5 % (24-48) Monocytes (%) (Auto) 6 % (0-9) Eosinophils (%) (Auto) 0 % (0-3) Basophils (%) (Auto) 0 % (0-3) Neutrophils # (Auto) 36.7 x10^3uL (1.8-7.7) Lymphocytes # (Auto) 2.2 x10^3/uL (1.0-4.8) Monocytes # (Auto) 2.3 x10^3/uL (0.0-1.1) Eosinophils # (Auto) 0.0 x10^3/uL (0.0-0.7) Basophils # (Auto) 0.2 x10^3/uL (0.0-0.2) Prothrombin Time 14.7 SEC (11.7-14.0) Prothromb Time International Ratio 1.2 (0.8-1.1) Test 11/21/18 15:08 11/21/18 18:10 11/21/18 18:15 11/21/18 21:51 Glucose (Fingerstick) 125 mg/dL (70-99) 140 mg/dL (70-99) 169 mg/dL (70-99) Sodium Level 142 mmol/L (136-145) Potassium Level 3.8 mmol/L (3.5-5.1) Chloride Level 104 mmol/L (98-107) Carbon Dioxide Level 26 mmol/L (21-32) Anion Gap 12 (6-14) Blood Urea Nitrogen 44 mg/dL (7-20) Creatinine 1.5 mg/dL (0.6-1.0) Estimated GFR (Cockcroft-Gault) 33.0 Glucose Level 155 mg/dL (70-99) Calcium Level 7.6 mg/dL (8.5-10.1) Phosphorus Level 3.9 mg/dL (2.6-4.7) Magnesium Level 1.6 mg/dL (1.8-2.4) Test 11/21/18 22:00 11/22/18 02:15 11/22/18 02:16 11/22/18 05:55 White Blood Count 40.7 x10^3/uL (4.0-11.0) Red Blood Count 3.81 x10^6/uL (3.50-5.40) Hemoglobin 10.1 g/dL (12.0-15.5) Hematocrit 31.7 % (36.0-47.0) Mean Corpuscular Volume 83 fL (79-100) Mean Corpuscular Hemoglobin 27 pg (25-35) Mean Corpuscular Hemoglobin Concent 32 g/dL (31-37) Red Cell Distribution Width 14.9 % (11.5-14.5) Platelet Count 230 x10^3/uL (140-400) Neutrophils (%) (Auto) 91 % (31-73) Lymphocytes (%) (Auto) 4 % (24-48) Monocytes (%) (Auto) 5 % (0-9) Eosinophils (%) (Auto) 0 % (0-3) Basophils (%) (Auto) 1 % (0-3) Neutrophils # (Auto) 37.1 x10^3uL (1.8-7.7) Lymphocytes # (Auto) 1.5 x10^3/uL (1.0-4.8) Monocytes # (Auto) 1.9 x10^3/uL (0.0-1.1) Eosinophils # (Auto) 0.0 x10^3/uL (0.0-0.7) Basophils # (Auto) 0.2 x10^3/uL (0.0-0.2) Prothrombin Time 14.8 SEC (11.7-14.0) 15.2 SEC (11.7-14.0) Prothromb Time International Ratio 1.2 (0.8-1.1) 1.2 (0.8-1.1) Sodium Level 143 mmol/L (136-145) 141 mmol/L (136-145) 143 mmol/L (136-145) Potassium Level 3.9 mmol/L (3.5-5.1) 4.0 mmol/L (3.5-5.1) 3.8 mmol/L (3.5-5.1) Chloride Level 105 mmol/L (98-107) 104 mmol/L (98-107) 105 mmol/L (98-107) Carbon Dioxide Level 23 mmol/L (21-32) 24 mmol/L (21-32) 22 mmol/L (21-32) Anion Gap 15 (6-14) 13 (6-14) 16 (6-14) Blood Urea Nitrogen 45 mg/dL (7-20) 47 mg/dL (7-20) 47 mg/dL (7-20) Creatinine 1.5 mg/dL (0.6-1.0) 1.5 mg/dL (0.6-1.0) 1.6 mg/dL (0.6-1.0) Estimated GFR (Cockcroft-Gault) 33.0 33.0 30.6 Glucose Level 187 mg/dL (70-99) 191 mg/dL (70-99) 189 mg/dL (70-99) Calcium Level 7.3 mg/dL (8.5-10.1) 7.3 mg/dL (8.5-10.1) 7.3 mg/dL (8.5-10.1) Phosphorus Level 3.9 mg/dL (2.6-4.7) 4.0 mg/dL (2.6-4.7) 3.9 mg/dL (2.6-4.7) Magnesium Level 1.6 mg/dL (1.8-2.4) 1.6 mg/dL (1.8-2.4) 1.6 mg/dL (1.8-2.4) Glucose (Fingerstick) 179 mg/dL (70-99) BUN/Creatinine Ratio 29 (6-20) Total Bilirubin 0.5 mg/dL (0.2-1.0) Aspartate Amino Transf (AST/SGOT) 99 U/L (15-37) Alanine Aminotransferase (ALT/SGPT) 129 U/L (14-59) Alkaline Phosphatase 73 U/L (46-116) Total Protein 5.9 g/dL (6.4-8.2) Albumin 2.2 g/dL (3.4-5.0) Albumin/Globulin Ratio 0.6 (1.0-1.7) Test 11/22/18 06:00 11/22/18 08:09 11/22/18 09:54 White Blood Count 38.8 x10^3/uL (4.0-11.0) Red Blood Count 3.73 x10^6/uL (3.50-5.40) Hemoglobin 9.8 g/dL (12.0-15.5) Hematocrit 30.7 % (36.0-47.0) Mean Corpuscular Volume 82 fL (79-100) Mean Corpuscular Hemoglobin 26 pg (25-35) Mean Corpuscular Hemoglobin Concent 32 g/dL (31-37) Red Cell Distribution Width 14.6 % (11.5-14.5) Platelet Count 241 x10^3/uL (140-400) Glucose (Fingerstick) 164 mg/dL (70-99) 196 mg/dL (70-99) Medications Active Scripts Medications Dose Route/Sig Max Daily Dose Days Date Category Lantus Solostar (Insulin Glargine,Hum.rec.anlog) 100 Unit/1 Ml Insuln.pen 45 Unit SQ QHS 11/20/18 Reported Spiriva (Tiotropium [place]) 18 Mcg Cap.w.dev 1 Cap IH DAILY 11/20/18 Reported Ramipril 10 Mg Capsule 1 Cap PO DAILY 11/20/18 Reported Metoprolol Tartrate 50 Mg Tablet 1 Tab PO BID 11/20/18 Reported Lasix (Furosemide) 40 Mg Tablet 1 Tab PO DAILY 11/20/18 Reported Glimepiride 2 Mg Tablet 1 Tab PO [id number] 11/20/18 Reported Glimepiride 4 Mg Tablet 1 Tab PO [id number] 11/20/18 Reported Duoneb 0.5-3(2.5) Mg/3 Ml (Albuterol/Ipratropium) 3 Ml Ampul.neb 3 Ml NEB QID 11/20/18 Reported Vitamin D (Cholecalciferol (Vitamin D3)) 1,000 Unit Capsule 1 Cap PO DAILY 11/20/18 Reported Breo Ellipta 100-25 Mcg Inh (Fluticasone/Vilanterol) 1 Each Aer.pow.ba 1 Puff IH DAILY 11/20/18 Reported Aspir-Low (Aspirin) 81 Mg Tablet.dr 1 Tab PO DAILY 11/20/18 Reported Ambien (Zolpidem Tartrate) 10 Mg Tablet 10 Mg PO PRN QHS PRN 11/20/18 Reported Tylenol (Acetaminophen) 325 Mg Tablet 1-2 Tab PO QID PRN 11/20/18 Reported Impression . IMPRESSION: 1. Acute respiratory failure secondary to out of hospital cardiopulmonary arrest. 2. Cardiac arrest, VFib. The patient shocked on the field. 3. History of nonischemic cardiomyopathy, ejection fraction of 15%. 4. Chronic heart failure. 5. Acute on chronic systolic heart failure. 6. 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 7. History of hypertension. 8. Type 2 diabetes. cxr IMPRESSION: 1. Stable tube positions. 2. Persistent moderate patchy right lung infiltrate suggesting pneumonia. 3. Unchanged mild left basilar atelectasis/infiltrate. echo <Conclusion> The ejection fraction is severely impaired. The Ejection Fraction is 30%. There is global hypokinesis of the left ventricle. Doppler and Color Flow revealed mild tricuspid regurgitation. There is moderate pulmonary hypertension. The PA pressure was estimated at 47 mmHg. Plan . D/C FROM [facility] PT DOES BREATH BRAINSTEM IS INTACT D/W FAMILY WILL AWAIT NEURO INPUT CURRENTLY UNDERGOING EEG D/W PAT PALLIATIVE CARE MALA DIAMOND MD Nov 22, 2018 11:02
[2018-11-22 11:41] LABS: FIO2 ABG 40
--- NOTE | 2018-11-22 11:48 | NUR ---
NN : Power surge yesterday. Arctic sun time frame off after that but rewarm goal reached at 1115 instead of 0915. Nesha Hugger removed. EEG ordered .Tech on floor w process started . All family members at bedside during procedure. No neuro changes from earlier assessment,remains on vasopressor,HR idioventricular w PVCs. Dr Cao in / Checked resp independence/ unsuccessful attempt as evidenced by immediate tachypnea,^ HR,low tidal volumes. Dr Ha in after EEG w detailed neuro check followed by findings explanation/and poor prognosis on patients part with these results. Lengthy family conference with decisions to proceed w EOL care soon. Continue POC at this time
[2018-11-22] MEDS ORDERED: INSULIN LISPRO 300 UNITS/3 ML INSULN.PEN. SQ SCH (12:00)
--- NOTE | 2018-11-22 13:11 | PDOC2 ---
PALLIATIVE CARE Palliative Care Note Palliative Care Dr. Cao and Dr Ha met with family and explained results of EEG and efforts to breath. Met with son Asa and his and daughter Giles and her . Family shared that patient enjoyed her grandchildren and would not want to be a burden to anyone. Asked to review process of transitioning to comfort care and allow a natural . Asa voiced concern about suffering. Reviewed process for removal of ventilator and medications that are not adding to her comfort. Will obtain order for medication for breathlessness, anxiety, pain prior to removing ET tube/ventilator. Encouraged family to spend individual time with patient. Asa would like to proceed with comfort care "now" Family will let staff know when everyone is ready to make changes. Premedicated as ordered. Extubated at 1528. Spontaneous respirations. Daughter and her at bedside. No respiratory distress. DENNIS ROWAN Nov 22, 2018 13:11
--- NOTE | 2018-11-22 14:02 | PDOC ---
PROGRESS NOTES Assessment Assessment Anoxia/hypoxia brain injury. Metabolic encephalopathy. Cardiopulmonary arrest, downtime estimated at least 5-10 minutes. In coma. Respiratory failure. VF and V-tach. Seizure. Leukocytosis. Metabolic acidosis. Diffuse right lung infiltrate. Hyperglycemia, glucose 321. CAD. CHF, EF 15% a month ago. HTN. Hepatic injury, elevated hepatic enzymes. Renal insufficiency/failure. Multi-organ failure. Obesity. Other medical diseases. Very poor prognosis. RECOMMENDATIONS/PLAN: Life support in ICU at the present time per family. Hypothermia protocol performed. Continue Keppra 500 mg IV q12h. Consulted Cardiology. Treat medical and cardiac diseases. EEG on 11/22/18. Further neurological evaluation on a daily basis. Consulted Palliative Care team. Discussed in all detail with her daughter, son and other family members at bedside and also on meeting room of ICU on 11/23/18. EEG on 11/22/18: Abnormal. PLEDs likely. HISTORY OF THE PRESENT ILLNESS: This is an 83-year-old female patient who was admitted after cardiopulmonary arrest. She has CAD and her recently EF was 15% over a month ago. She had rheumatic heart disease in childhood. She was sitting on a recliner after eating biscuits and gravy and sat back a little bit further which afterwards she was noted by her daughter described as cough and agonal breathing and started shaking her arms, so 911 was called. EMS station is near her family and no CPR started till EMS got there which was about 5-10 minutes from symptoms had started. No notable CP, vomiting or incontinence at that time. She was revealed V-fib and was shocked at least once per staff. She was intubated en route while in ED at [facility] apparently had V-tach then went back to . She was on hospice but daughter decided to revoke it and further resuscitation was received and she was eventually transferred to [facility] for further evaluation and treatment. PAST MEDICAL HISTORY Cardiovascular: CHF, HTN, Other (NICM) CENTRAL NERVOUS SYSTEM: Other (RLS) Musculoskeletal: Osteoarthritis PAST SURGICAL HISTORY Mastoid surgery. FAMILY HISTORY Noncontributory SOCIAL HISTORY Smoke: No ALCOHOL: none Drugs: None Lives: with Family ALLERGY: Unknown MEDICATIONS: Refer to MAR REVIEW OF SYSTEMS: Constitutional: Obesity. Head: No recent traumatic brain or head injury. Skin: No edema, or rash. Ear: No infection. Eyes: No vision loss or color blindness. Nose: No bleeding or purulent discharges. Hearing: Hearing decrease. Neck: No injury. Breast: No history of cancer, masses,or discharges. Cardiac: CAD, CHF. Pulmonary: Pneumonia. GI: No GI ulcer. Urinary/genital: UTI. Endocrinologic: Diabetes Mellitus, obesity. Skeletomuscular: No muscular atrophy, deformity. Neurological: see HP. Psychiatric: Denies drug use/abuse. Otherwise, not [id number] review of systems. PHYSICAL EXAMINATION: General appearance is in acute distress. HEENT: Normocephalic and nontraumatic. Eyes, nose, ears, and throat are unremarkable. Neck is supple. No lymphadenopathy. No crepitus. Cardiovascular: S1, S2. Pulmonary: On vent. Abdomen: Bowel sounds are positive. Extremities: No rash. No restriction of range of motion NEUROLOGICAL EXAMINATION: Unresponsiveness. In coma. Not oriented to time, place and person. Pupils about 2 mm, not sensitive to light stimuli. EOMI not elicited. Corneal reflex not elicited. Doll's sign not elicited. No gag nor cough reflexes per her nurse. CN: no acute focal findings. Muscle tone: decreased. Muscle strength: Minimal movements in LE noted to stimuli. DTR: 0-1 Plantar reflex: Minimal response as neutral response bilaterally Gait: Unable to walk. Sensory exam: no response to painful stimuli. Not able to access cerebellar signs. F-T-N test not performed in unresponsive state. Objective Objective Vital Signs Date Time Temp Pulse Resp B/P (MAP) Pulse Ox O2 Delivery O2 Flow Rate FiO2 11/22/18 11:22 99 Ventilator 11/22/18 11:00 97.2 79 28 93/46 (62) 97.2 Intake and Output 11/22/18 07:00 Intake Total 5296 ml Output Total 857 ml Balance 4439 ml Intake Oral 0 ml IV Total 5296 ml Output Urine Total 357 ml Gastric Drainage Total 500 ml Vitals Signs Vitals VS - Last 72 Hours, by Label Date Time Temp Pulse Resp B/P (MAP) Pulse Ox O2 Delivery O2 Flow Rate FiO2 11/22/18 11:22 99 Ventilator 11/22/18 11:00 97.2 79 28 93/46 (62) 100 Ventilator 97.2 11/22/18 10:27 100 Ventilator 11/22/18 10:00 96.0 66 115/45 (68) 100 Ventilator 96.0 3/28/19 09:00 96.0 62 33 83/45 (58) Ventilator 96.0 11/22/18 08:00 Mechanical Ventilator 11/22/18 08:00 97.0 74 28 97 Ventilator 97.0 11/22/18 07:49 98 Ventilator 11/22/18 07:00 96.9 64 28 113/46 (68) 99 Ventilator 96.9 11/22/18 07:00 59 128/50 (76) 98 Ventilator 11/22/18 06:00 96.4 82 28 113/64 (80) 99 Ventilator 96.4 11/22/18 05:57 98 Ventilator 11/22/18 05:00 94.5 90 28 119/47 (71) 98 Ventilator 94.5 11/22/18 04:00 94.3 60 28 117/51 (73) 98 Ventilator 94.3 11/22/18 04:00 Mechanical Ventilator 11/22/18 03:19 99 Ventilator 11/22/18 03:00 92.6 50 28 110/52 (71) 98 Ventilator 92.6 11/22/18 02:00 92.1 57 28 99/51 (67) 98 Ventilator 92.1 11/22/18 01:28 98 Ventilator 11/22/18 01:00 91.9 57 28 127/49 (75) 98 Ventilator 91.9 11/22/18 00:15 124/60 (81) 11/22/18 00:00 91.9 52 28 67/47 (54) 98 Ventilator 91.9 11/21/18 23:47 Mechanical Ventilator 11/21/18 23:06 98 Ventilator 11/21/18 23:00 91.9 54 28 123/80 (94) 98 Ventilator 91.9 11/21/18 22:30 91.9 55 28 117/41 (66) 98 Ventilator 91.9 11/21/18 22:00 91.9 54 28 123/80 (94) 98 Ventilator 91.9 11/21/18 21:00 91.4 60 28 100/57 (71) 98 Ventilator 91.4 11/21/18 20:00 91.4 55 28 103/63 (76) 98 Ventilator 91.4 11/21/18 19:57 97 Ventilator 11/21/18 19:53 Mechanical Ventilator 11/21/18 19:00 91.2 57 28 85/60 (68) 98 Ventilator 91.2 11/21/18 18:25 97 Ventilator 11/21/18 18:00 92.2 56 28 103/51 (68) 97 Ventilator 92.2 11/21/18 17:00 93.0 56 28 106/51 (69) 98 Ventilator 93.0 11/21/18 16:12 97 Ventilator 11/21/18 16:00 92.3 44 28 105/52 (69) 96 Ventilator 92.3 11/21/18 16:00 Mechanical Ventilator 11/21/18 15:00 92.3 28 99/45 (63) 98 Ventilator 92.3 11/21/18 14:00 92.3 28 102/55 (71) 98 Ventilator 92.3 11/21/18 13:37 95 Ventilator 11/21/18 13:00 92.3 58 28 106/53 (70) 97 Ventilator 92.3 11/21/18 12:25 95 Ventilator 11/21/18 12:00 Mechanical Ventilator 11/21/18 12:00 92.3 44 28 105/52 (69) 96 Ventilator 92.3 11/21/18 11:00 92.3 50 28 104/57 (73) 95 Ventilator 92.3 11/21/18 10:13 99 Ventilator 11/21/18 10:00 91.4 46 28 100/56 (71) 99 Ventilator 91.4 11/21/18 09:30 91.4 46 28 90/50 (63) 98 Ventilator 91.4 11/21/18 09:00 91.4 46 28 119/60 (79) 98 Ventilator 91.4 11/21/18 08:45 91.4 48 28 42/58 (53) 99 Ventilator 91.4 11/21/18 08:30 92.3 52 28 113/81 (92) 99 Ventilator 92.3 11/21/18 08:15 91.2 42 28 104/51 (68) 99 Ventilator 91.2 11/21/18 08:00 99 Ventilator 11/21/18 08:00 91.2 46 28 120/70 (87) 99 Ventilator 91.2 11/21/18 08:00 Mechanical Ventilator 11/21/18 07:30 Ventilator 11/21/18 07:15 Ventilator 11/21/18 07:00 91.4 Ventilator 91.4 Laboratory Laboratory Laboratory Tests Test 11/21/18 14:00 11/21/18 14:07 11/21/18 15:08 11/21/18 18:10 White Blood Count 41.4 x10^3/uL (4.0-11.0) Red Blood Count 3.89 x10^6/uL (3.50-5.40) Hemoglobin 10.3 g/dL (12.0-15.5) Hematocrit 32.3 % (36.0-47.0) Mean Corpuscular Volume 83 fL (79-100) Mean Corpuscular Hemoglobin 26 pg (25-35) Mean Corpuscular Hemoglobin Concent 32 g/dL (31-37) Red Cell Distribution Width 14.3 % (11.5-14.5) Platelet Count 243 x10^3/uL (140-400) Neutrophils (%) (Auto) 89 % (31-73) Lymphocytes (%) (Auto) 5 % (24-48) Monocytes (%) (Auto) 6 % (0-9) Eosinophils (%) (Auto) 0 % (0-3) Basophils (%) (Auto) 0 % (0-3) Neutrophils # (Auto) 36.7 x10^3uL (1.8-7.7) Lymphocytes # (Auto) 2.2 x10^3/uL (1.0-4.8) Monocytes # (Auto) 2.3 x10^3/uL (0.0-1.1) Eosinophils # (Auto) 0.0 x10^3/uL (0.0-0.7) Basophils # (Auto) 0.2 x10^3/uL (0.0-0.2) Prothrombin Time 14.7 SEC (11.7-14.0) Prothromb Time International Ratio 1.2 (0.8-1.1) Glucose (Fingerstick) 139 mg/dL (70-99) 125 mg/dL (70-99) 140 mg/dL (70-99) Test 11/21/18 18:15 11/21/18 21:51 11/21/18 22:00 11/22/18 02:15 Sodium Level 142 mmol/L (136-145) 143 mmol/L (136-145) 141 mmol/L (136-145) Potassium Level 3.8 mmol/L (3.5-5.1) 3.9 mmol/L (3.5-5.1) 4.0 mmol/L (3.5-5.1) Chloride Level 104 mmol/L (98-107) 105 mmol/L (98-107) 104 mmol/L (98-107) Carbon Dioxide Level 26 mmol/L (21-32) 23 mmol/L (21-32) 24 mmol/L (21-32) Anion Gap 12 (6-14) 15 (6-14) 13 (6-14) Blood Urea Nitrogen 44 mg/dL (7-20) 45 mg/dL (7-20) 47 mg/dL (7-20) Creatinine 1.5 mg/dL (0.6-1.0) 1.5 mg/dL (0.6-1.0) 1.5 mg/dL (0.6-1.0) Estimated GFR (Cockcroft-Gault) 33.0 33.0 33.0 Glucose Level 155 mg/dL (70-99) 187 mg/dL (70-99) 191 mg/dL (70-99) Calcium Level 7.6 mg/dL (8.5-10.1) 7.3 mg/dL (8.5-10.1) 7.3 mg/dL (8.5-10.1) Phosphorus Level 3.9 mg/dL (2.6-4.7) 3.9 mg/dL (2.6-4.7) 4.0 mg/dL (2.6-4.7) Magnesium Level 1.6 mg/dL (1.8-2.4) 1.6 mg/dL (1.8-2.4) 1.6 mg/dL (1.8-2.4) Glucose (Fingerstick) 169 mg/dL (70-99) White Blood Count 40.7 x10^3/uL (4.0-11.0) Red Blood Count 3.81 x10^6/uL (3.50-5.40) Hemoglobin 10.1 g/dL (12.0-15.5) Hematocrit 31.7 % (36.0-47.0) Mean Corpuscular Volume 83 fL (79-100) Mean Corpuscular Hemoglobin 27 pg (25-35) Mean Corpuscular Hemoglobin Concent 32 g/dL (31-37) Red Cell Distribution Width 14.9 % (11.5-14.5) Platelet Count 230 x10^3/uL (140-400) Neutrophils (%) (Auto) 91 % (31-73) Lymphocytes (%) (Auto) 4 % (24-48) Monocytes (%) (Auto) 5 % (0-9) Eosinophils (%) (Auto) 0 % (0-3) Basophils (%) (Auto) 1 % (0-3) Neutrophils # (Auto) 37.1 x10^3uL (1.8-7.7) Lymphocytes # (Auto) 1.5 x10^3/uL (1.0-4.8) Monocytes # (Auto) 1.9 x10^3/uL (0.0-1.1) Eosinophils # (Auto) 0.0 x10^3/uL (0.0-0.7) Basophils # (Auto) 0.2 x10^3/uL (0.0-0.2) Prothrombin Time 14.8 SEC (11.7-14.0) Prothromb Time International Ratio 1.2 (0.8-1.1) Test 11/22/18 02:16 11/22/18 05:55 11/22/18 06:00 11/22/18 08:00 Glucose (Fingerstick) 179 mg/dL (70-99) Prothrombin Time 15.2 SEC (11.7-14.0) Prothromb Time International Ratio 1.2 (0.8-1.1) Sodium Level 143 mmol/L (136-145) Potassium Level 3.8 mmol/L (3.5-5.1) Chloride Level 105 mmol/L (98-107) Carbon Dioxide Level 22 mmol/L (21-32) Anion Gap 16 (6-14) Blood Urea Nitrogen 47 mg/dL (7-20) Creatinine 1.6 mg/dL (0.6-1.0) Estimated GFR (Cockcroft-Gault) 30.6 BUN/Creatinine Ratio 29 (6-20) Glucose Level 189 mg/dL (70-99) Calcium Level 7.3 mg/dL (8.5-10.1) Phosphorus Level 3.9 mg/dL (2.6-4.7) Magnesium Level 1.6 mg/dL (1.8-2.4) Total Bilirubin 0.5 mg/dL (0.2-1.0) Aspartate Amino Transf (AST/SGOT) 99 U/L (15-37) Alanine Aminotransferase (ALT/SGPT) 129 U/L (14-59) Alkaline Phosphatase 73 U/L (46-116) Total Protein 5.9 g/dL (6.4-8.2) Albumin 2.2 g/dL (3.4-5.0) Albumin/Globulin Ratio 0.6 (1.0-1.7) White Blood Count 38.8 x10^3/uL (4.0-11.0) Red Blood Count 3.73 x10^6/uL (3.50-5.40) Hemoglobin 9.8 g/dL (12.0-15.5) Hematocrit 30.7 % (36.0-47.0) Mean Corpuscular Volume 82 fL (79-100) Mean Corpuscular Hemoglobin 26 pg (25-35) Mean Corpuscular Hemoglobin Concent 32 g/dL (31-37) Red Cell Distribution Width 14.6 % (11.5-14.5) Platelet Count 241 x10^3/uL (140-400) O2 Saturation 97 % (92-99) Arterial Blood pH 7.40 (7.35-7.45) Arterial Blood pCO2 at Patient Temp 30 mmHg (35-46) Arterial Blood HCO3 18 mmol/L (21-28) Arterial Blood Base Excess -6 mmol/L (-3-3) FiO2 40 Test 11/22/18 08:09 11/22/18 09:54 Glucose (Fingerstick) 164 mg/dL (70-99) 196 mg/dL (70-99) Medication Medications Current Medications Dextrose (Dextrose 50%-Water Syringe) 12.5 gm PRN Q15MIN PRN IV SEE COMMENTS; Start 11/22/18 at 11:00 Famotidine (Pepcid Vial) 20 mg QHS IVP Last administered on 11/21/18at 20:55; Start 11/21/18 at 21:00 Heparin Sodium (Porcine) (Heparin Sodium) 5,000 unit Q8HRS SQ Last administered on 11/22/18at 06:01; Start 11/21/18 at 14:00 Insulin Human Lispro (HumaLOG) 0-7 UNITS Q6HRS SQ Last administered on at 13:21; Start 11/22/18 at 12:00 Vancomycin HCl (Vancomycin Trough Level) 1 each 1X ONCE MC ; Start 11/22/18 at 20:30; Stop 11/22/18 at 20:31 Vancomycin HCl 1.25 gm/Sodium Chloride 250 ml @ 166.667 mls/hr Q24H IV Last administered on 11/21/18at 20:55; Start 11/21/18 at 21:00 Comment Review of Relevant I have reviewed the following items karson (where applicable) has been applied. KAI MENDEZ MD Nov 22, 2018 14:02
[2018-11-22] MEDS ORDERED: MORPHINE SULFATE 2 MG/ML VIAL. IV ONE (15:00)
[2018-11-22] MEDS ORDERED: fentaNYL PF VIAL 100 MCG/2 ML VIAL IV PRN (15:15)
[2018-11-22] MEDS ORDERED: MORPHINE SULFATE 4 MG/ML VIAL. IM ONE (15:45)
[2018-11-22] MEDS ORDERED: MORPHINE SULFATE/PF 30 ML IV PRN (17:00)
--- NOTE | 2018-11-22 17:03 | NUR ---
1538 premedicated per order.Rt notified. Extubated per Stella RT w removal of o OG at same time . Family at bedside. Monitor off then family requested back on . Comfort level oal at this time. Variable HR,RR cont POC. MS gtt orders not initiated as of yet
--- NOTE | 2018-11-22 18:27 | NUR ---
1728 family at bedside when patient passed.pronounced . . Body to burt
--- NOTE | 2018-11-22 22:18 | PN ---
DATE: 11/22/2018 SUBJECTIVE: The patient continued to be on mechanical ventilation. She is off the sedation and she is in the process of rewarming. She is now at 96 degrees Fahrenheit. She continued to be on Levophed at 15 mcg. Continue with Keppra for seizure disorder and insulin drip and also IV antibiotic in the form of vancomycin and Zosyn for possible aspiration pneumonia. PHYSICAL EXAMINATION: GENERAL: When I examined her, she looked pale, but no jaundice, cyanosis, or thyromegaly. No jugular venous distension. No lower limb edema. VITAL SIGNS: Her heart rate was 74, blood pressure 113/46, temperature was 96, respiratory rate was 28 and oxygen saturation was 97% on FiO2 of 40%. HEAD, EYES, EARS, NOSE AND THROAT: She is normocephalic and atraumatic. She has orotracheal and orogastric tube in place. NECK: Supple. HEART: Showed normal first and second heart sounds with no gallop, rub or murmur. CHEST: Clear to auscultation. She has right-sided crepitation posteriorly. I could not appreciate any rhonchi. ABDOMEN: Distended, soft, and nontender. NEUROLOGIC: She is encephalopathic. Her intake over the last 24 hours was 4000, output was 500. LABORATORY DATA: Showed a white cell count is down to 38,800, hemoglobin 9.8, hematocrit 30.7, MCV 82 and platelet count 241,000. Her chemistry showed serum sodium of 143, potassium 3.8, chloride 105, bicarbonate 22, anion gap of 16, BUN 47, creatinine 1.6, estimated GFR was 50 mL per minute. Her glucose 189, calcium was 7.3, phosphorus 3.9, magnesium was 1.6. Total bilirubin, AST, ALT, alkaline phosphatase slightly elevated, but trending down. Her total protein was 5.9, albumin 2.2. ASSESSMENT: 1. [id number] cardiopulmonary arrest with ventricular fibrillation/ventricular tachycardia for which she had had 2 shocks, presented to the Emergency Room with sinus rhythm and left bundle-branch block. She apparently had 5-10 minutes without CPR with described agonal breathing, suspected triggered potentially by aspiration. 2. Acute on chronic systolic congestive heart failure. 3. Acute respiratory failure for which she is intubated, mechanically ventilated. 4. Anoxic encephalopathy with seizure disorder for which she is on Keppra. 5. Right upper lobe pneumonia with possible aspiration. 6. She is actually hypotensive on Levophed. 7. Type 2 diabetes mellitus, which she is on insulin drip. 8. Hyperlipidemia. 9. Nonischemic cardiomyopathy with known ejection fraction of less than 15%. 10. She has apparently history of rheumatic heart disease. PLAN: To continue the IV Levophed, continue rewarming process. Continue with Keppra for seizures and IV antibiotic for possible right-sided pneumonia. The patient will be evaluated by the neurologist to probably have an EEG for the family to decide on further management. LEN SOTELO MD DR: TELMA/sagar JOB#: [id number] / [id number]
--- NOTE | 2018-11-23 19:50 | NUR ---
late entry reported per daughter Adrianna flu vaccine given this year,pneumonia 2 years ago
--- NOTE | 2018-11-23 21:18 | EEG ---
DATE OF SERVICE: 11/22/2018 EEG NUMBER: [id number]. OBJECTIVE: This is an 83-year-old female patient who is in the status of post-cardiac and pulmonary arrest and she had seizure or seizure like episodes. EEG was requested to evaluate cerebral activity and rule out subclinical seizures. METHODS: Twenty electrodes were applied according to the international 10-20 electrode placement system. EKG monitoring, hyperventilation, intermittent photic stimulation, monopolar and bipolar montages are routinely utilized. The record was obtained on a digital system with video monitoring. MEDICATIONS: Keppra. FINDINGS: 1. Background: The patient was recorded in the unresponsive state only. No physiological, awake, drowsy, and sleep states were recorded. The overall background amplitude is variable. No posterior dominant rhythm is observed. The overall background rhythm is with diffuse slowing mainly in the delta frequency in a burst suppression pattern. 2. Abnormalities: No specific epileptiform discharge or electrographic seizure is seen. The overall background rhythm is with burst suppression pattern of diffuse slowing mainly in the delta frequency throughout the entire recording. Diffuse triphasic waves also noted throughout the entire recording. 3. Activation: Hyperventilation was not performed because the patient was in comatose state. Intermittent photic stimulation was performed without photic driving. IMPRESSION: This EEG is a remarkably abnormal study for the unresponsive state only. No physiological, awake, drowsy, and sleep states were recorded. No posterior dominant rhythm is observed. The overall background rhythm is with diffuse slowing in burst suppression pattern in the delta frequency throughout the entire recording. No lateralizing, specific epileptiform discharge or electrographic seizure is seen. Diffuse triphasic waves also noted throughout the entire recording. This pattern of EEG is suggestive of metabolic disturbance and cerebral dysfunction. KAI MENDEZ MD DR: LUIS ENRIQUE/sagar JOB#: [id number] / [id number] VALERIA
--- NOTE | 2018-12-20 18:36 | DS ---
DATE OF DISCHARGE: 11/23/2018 HOSPITAL COURSE: The patient is an 83-year-old female patient, who was brought to the Emergency Room of [facility] as she has sustained cardiopulmonary arrest and was successfully resuscitated. She was intubated and was transferred to [facility] to continue mechanical ventilation and start hypothermic protocol and to consult the Cardiology as well as the compound coating machine offbearer. It transpired that the patient was on hospice; however, she never signed the DNR/DNI and has nonischemic cardiomyopathy, chronic systolic congestive heart failure, ejection fraction of only 15%. She also is known to have hypertension, restless leg syndrome, and osteoarthritis. As she was hypotensive, she did receive almost 3 liters of fluid and was started on Levophed, hypothermia protocol and by the time she arrived to the ICU, she has what seemed to be partial seizures, for which we started on loading dose of Keppra and continued on 500 mg IV twice a day. As she was hypotensive, she was started on Levophed and given that her white cell count was also extremely high at 40,000, I did start her also on broad-spectrum antibiotic in the form of vancomycin and Zosyn as per pharmacy recommendation. The compound coating machine offbearer and staff antisubmarine officer team was consulted and given that she has also sustained cardiac arrest, probably based on cardiac arrhythmia in a patient with nonischemic cardiomyopathy with very poor ejection fraction and seizure, I did consult the neurologist. I have also consulted the palliative care team given the fact that she was already on hospice prior to her cardiac arrest. The patient was seen by the neurologist, who basically did an EEG, which showed that it is remarkably abnormal for the unresponsive state only, no physiological awake, drowsy or sleep state was recorded. No posterior dominant rhythm was observed. Overall, the background rhythm is with diffuse slowing and burst suppression pattern in the delta frequency throughout the entire recording. No lateralizing, specific epileptiform discharge or electrographic seizures are seen. Diffuse triphasic waves are also noted throughout the entire recording. This pattern of EEG is suggestive of metabolic disturbance and cerebral dysfunction. Palliative Care was also consulted, and the family after a lengthy discussion decided to withhold any life sustaining measures and the patient was extubated at 1528 on ____. The patient was premedicated as ordered, and her daughter and her were at bedside. The patient was pronounced at around 1728 with the family at the bedside. FINAL DISCHARGE DIAGNOSES: Cardiopulmonary arrest, acute respiratory failure. Severe sepsis, likely from aspiration pneumonia. Severe acute on chronic systolic congestive heart failure. LEN SOTELO MD DR: TELMA/sagar JOB#: [id number] / [id number]
== END 2018-11-23 | disposition expired | DRG 208 ==
LOC: 1 WEST ICU 12:36
PROVIDERS: ADMIT Internal Medicine; ATTEND Internal Medicine
PROC: 5A1945Z Respiratory Ventilation, 24-96 Consecutive Hours (ICD-10-PCS; principal; 2018-11-20)
PROC: 0BH17EZ Insertion of Endotracheal Airway into Trachea, Via Natural or Artificial Opening (ICD-10-PCS; 2018-11-20)
PROC: 02HV33Z Insertion of Infusion Device into Superior Vena Cava, Percutaneous Approach (ICD-10-PCS; 2018-11-20)
PROC: B548ZZA Ultrasonography of Superior Vena Cava, Guidance (ICD-10-PCS; 2018-11-20)
DX: J96.01 Acute respiratory failure with hypoxia (principal); G93.41 Metabolic encephalopathy; I50.23 Acute on chronic systolic (congestive) heart failure; J11.08 Influenza due to unidentified influenza virus with specified pneumonia; J69.0 Pneumonitis due to inhalation of food and vomit; G40.89 Other seizures; G93.1 Anoxic brain damage, not elsewhere classified; I47.2 Ventricular tachycardia; E87.2 Acidosis; I42.9 Cardiomyopathy, unspecified; J98.11 Atelectasis; Z66 Do not resuscitate; I49.01 Ventricular fibrillation; E11.65 Type 2 diabetes mellitus with hyperglycemia; E66.9 Obesity, unspecified; E78.5 Hyperlipidemia, unspecified; G25.81 Restless legs syndrome; M19.90 Unspecified osteoarthritis, unspecified site; I09.9 Rheumatic heart disease, unspecified; I11.0 Hypertensive heart disease with heart failure; I25.10 Atherosclerotic heart disease of native coronary artery without angina pectoris; I27.20 Pulmonary hypertension, unspecified; Z87.891 Personal history of nicotine dependence; Z68.37 Body mass index [BMI] 37.0-37.9, adult; I44.7 Left bundle-branch block, unspecified; I46.9 Cardiac arrest, cause unspecified
CPT/HCPCS: 36415; 36556; 36600; 70450; 71045; 74018; 76937; 80048; 80053; 82805; 82962; 83735; 84100; 84484; 85007; 85025; 85027; 85610; 93306; 94002; 94003; 95816; C1892; J1644; J1815; J1953; J2060; J2250; J2270; J2543; J3010; J3370; J3490; J7030; J7040; J7050